=== PATIENT | male | born 1975 | race Native Hawaiian/Other Pacific Islander ===

== ENCOUNTER → 2019-11-16 | Outpatient (CLI) | payer BC, OTHER | END | disposition home or self-care (01) | LOC: LABWHC1 14:57 | PROVIDERS: ATTEND Internal Medicine | DX: Z20.828 Contact with and (suspected) exposure to other viral communicable diseases (principal) | CPT/HCPCS: U0003; C9803 ==

== ENCOUNTER 2019-11-28 11:07 | Inpatient (IN) | payer BC ==
[2019-11-28] MEDS ORDERED: SODIUM CHLORIDE 0.9% 2,000 ML IV STA (11:36)
[2019-11-28] MEDS ORDERED: ONDANSETRON 4 MG/2 ML VIAL IVP STA (11:36)
[2019-11-28 12:04] LABS: Basophils # (A) 0.1 k/uL (0-0.2); Basophils % (A) 1 %; Eosinophils # (A) 0.1 k/uL (0-0.7); Eosinophils % (A) 1 %; HCT 46.1 % (39.0-53.0); HGB 15.3 gm/dL (13.0-17.5); Lymphocytes # (A) 1.1 k/uL (1.0-4.8); Lymphocytes % (A) 10 %; MCH 28.9 pg (25.0-35.0); MCHC 33.3 g/dL (31.0-37.0); Mean Platelet Volume 7.8; Monocytes # (A) 0.5 k/uL (0-1.0); Monocytes % (A) 4 %; Neutrophils # (A) 9.2 k/uL (1.3-7.7); Neutrophils % (A) 83 %; Platelet Count 280 k/uL (150-450); RBC 5.29 m/uL (4.30-5.90); RDW 12.4 % (11.5-15.5); WBC 11.2 k/uL (3.8-10.6)
[2019-11-28 12:17] LABS: ALT 52 U/L (4-49); AST 46 U/L (17-59); African American GFR (CKD) >90 (>60 ml/min/1.73 sqM); Albumin 3.9 g/dL (3.5-5.0); Alkaline Phosphatase 181 U/L (38-126); Amylase 103 U/L (30-110); Anion Gap 12 mmol/L; Blood Urea Nitrogen 14 mg/dL (9-20); Calcium 8.8 mg/dL (8.4-10.2); Carbon Dioxide 24 mmol/L (22-30); Chloride 97 mmol/L (98-107); Glucose 126 mg/dL (74-99); Non-African American GFR(CKD) >90 (>60 ml/min/1.73 sqM); Potassium 3.9 mmol/L (3.5-5.1); Sodium 133 mmol/L (137-145); Total Bilirubin 1.6 mg/dL (0.2-1.3)
[2019-11-28 12:26] LABS: Appearance,Urine Clear (Clear); Bilirubin,Urine 1+ (Negative); Blood,Urine Small (Negative); Color,Urine Dark Yellow; Glucose,Urine (UA) Negative (Negative); Ketones,Urine 4+ (Negative); Leukocyte Esterase,Urine Negative (Negative); Mucus,Urine Many /hpf; Nitrite,Urine Negative (Negative); Protein,Urine 2+ (Negative); RBC,Urine 2 /hpf (0-5); Specific Gravity,Urine 1.027 (1.001-1.035); Squamous Epithelial Cell,Urine <1 /hpf (0-4); Urobilinogen,Urine >12.0 mg/dL (<2.0); WBC,Urine 6 /hpf (0-5)
--- NOTE | 2019-11-28 12:41 | CT ---
EXAMINATION TYPE: CT abdomen pelvis w con DATE OF EXAM: 11/28/2019 COMPARISON: None HISTORY: recent diagnosis of UTI, increasing low abd pain today CT DLP: 1332.9 mGycm Automated exposure control for dose reduction was used. TECHNIQUE: Helical acquisition of images from the lung bases through the pelvis have been completed. CONTRAST: Performed without Oral Contrast and with IV Contrast, patient injected with 100 mL of Isovue 300. FINDINGS: Suspect a small hiatal hernia. There are coronary artery calcification suspected. LUNG BASES: No significant abnormality is appreciated. AORTA: No significant abnormality is appreciated. LIVER/GB: No significant abnormality is appreciated. PANCREAS: No significant abnormality is seen. SPLEEN: No significant abnormality is seen. ADRENALS: No significant abnormality is seen. KIDNEYS: No significant abnormality is seen. REPRODUCTIVE ORGANS: Prostate is enlarged BOWEL: There is abnormal thickening in the sigmoid colon region. Pericolonic increased attenuation p resent in the surrounding fat.. FREE AIR: Pneumoperitoneum appears somewhat localized to the colonic abnormality within the mesenter y but is also noted within an umbilical hernia and within the upper abdomen. ASCITES: Small amount of free fluid in the pelvis and mesenteric fat. There is motion on the exam. PELVIC ADENOPATHY: None visualized. RETROPERITONEAL ADENOPATHY: No Retroperitoneal Adenopathy visible. URINARY BLADDER: No significant abnormality is seen. OSSEOUS STRUCTURES: Degenerative disc changes are present within the visualized spine IMPRESSION: FINDINGS LIKELY REPRESENT DIVERTICULITIS WITH PERFORATION, PNEUMOPERITONEUM, REPORT RELAYED TO NICO TELEPHONICALLY AT THE TIME OF INTERPRETATION AT EXAM.
[2019-11-28] MEDS ORDERED: PIPERACILLIN-TAZOBACTAM 3.375 GM in SODIUM CHLORIDE 0.9% 100 ML IVPB STA (12:42)
[2019-11-28] MEDS ORDERED: ACETAMINOPHEN IV (For NPO) 1,000 MG in EMPTY BAG 1 BAG IVPB STA (12:44)
--- NOTE | 2019-11-28 12:44 | ED ---
Abdominal Pain HPI - General Source: patient, RN notes reviewed Mode of arrival: ambulatory Limitations: no limitations <Alex Potts - Last Filed: 11/28/19 12:52> <Kel Magdaleno - Last Filed: 11/28/19 13:21> - General Chief Complaint: Abdominal Pain Stated Complaint: abd pain Time Seen by Provider: 11/28/19 11:25 - History of Present Illness Initial Comments: 44-year-old male presents emergency Department chief complaint lower abdominal pain. Patient states he had pain that started approximate 4 days ago. Patient was seen at [facility] and was started on Bactrim for recheck infection. Patient states he took 3 days antibiotic states symptoms seemed to improve but greatly worsened last 24 hours. Patient states he has severe lower abdominal pain. Patient does admit to nausea vomiting and slight diarrhea. Denies any melena hematochezia. Patient denies any flank pain. Patient states she does have a fever and chills. denies any chest pain or shortness of breath. (Alex Potts) - Related Data Home Medications Medication Instructions Recorded Confirmed Famotidine [Pepcid AC] 10 mg PO BID 11/28/19 11/28/19 Sulfamethoxazole/Trimethoprim 1 tab PO BID 11/28/19 11/28/19 [Sulfamethoxazole-Tmp Ds Tablet] Allergies Allergy/AdvReac Type Severity Reaction Status Date / Time No Known Allergies Allergy Verified 11/28/19 12:32 Review of Systems ROS Other: All systems not noted in ROS Statement are negative. <Alex Potts - Last Filed: 11/28/19 12:52> ROS Other: All systems not noted in ROS Statement are negative. <Kel Magdaleno - Last Filed: 11/28/19 13:21> ROS Statement: Those systems with pertinent positive or pertinent negative responses have been documented in the HPI. Past Medical History Additional Past Medical History / Comment(s): UTI History of Any Multi-Drug Resistant Organisms: None Reported Past Surgical History: No Surgical Hx Reported Past Psychological History: Anxiety Smoking Status: Light tobacco smoker Past Alcohol Use History: Daily Past Drug Use History: None Reported <Alex Potts - Last Filed: 11/28/19 12:52> General Exam Limitations: no limitations General appearance: alert, in no apparent distress Head exam: Present: atraumatic, normocephalic, normal inspection Eye exam: Present: normal appearance, PERRL, EOMI. Absent: scleral icterus, conjunctival injection, periorbital swelling Respiratory exam: Present: normal lung sounds bilaterally. Absent: respiratory distress, wheezes, rales, rhonchi, stridor Cardiovascular Exam: Present: normal rhythm, tachycardia, normal heart sounds. Absent: systolic murmur, diastolic murmur, rubs, gallop, clicks GI/Abdominal exam: Present: soft, distended, tenderness, rigid, normal bowel sounds. Absent: guarding, rebound Neurological exam: Present: alert, oriented X3 Skin exam: Present: warm, dry, intact, normal color. Absent: rash <Alex Potts - Last Filed: 11/28/19 12:52> Course <Kel Magdaleno - Last Filed: 11/28/19 13:21> Vital Signs 11/28/19 11/28/19 11:16 12:49 Temperature 99.2 F 103.2 F H Pulse Rate 128 H 138 H Respiratory 20 18 Rate Blood Pressure 163/93 137/85 O2 Sat by Pulse 99 98 Oximetry - Reevaluation(s) Reevaluation #1: 11/28/19 13:20 PA supervision: I pursued a [id number] evaluation the patient he did present with complaints of abdominal pain. The patient will be admitted I did discuss case Dr. Yates. (Kel Magdaleno) Medical Decision Making - Lab Data Result diagrams: 11/28/19 11:48 11/28/19 11:48 <Alex Potts - Last Filed: 11/28/19 12:52> - Lab Data Result diagrams: 11/28/19 11:48 11/28/19 11:48 <Kel Magdaleno - Last Filed: 11/28/19 13:21> - Medical Decision Making 43-year-old male presented for abdominal pain. CT shows evidence of diverticulitis with perforation. Patient found to have mild cytosis, fever 103 and tachycardia related to fever and dehydration. Patient given 2 L bolus and maintenance fluid started 130mls/hr. patient was started on IV antibiotics, blood cultures were taken. Case discussed with Dr. Yates. Patient will be admitted for further management. (Alex Potts) - Lab Data Lab Results 07/28/20 07/28/20 07/28/20 Range/Units 11:48 11:48 11:48 WBC 11.2 H (3.8-10.6) k/uL RBC 5.29 (4.30-5.90) m/uL Hgb 15.3 (13.0-17.5) gm/dL Hct 46.1 (39.0-53.0) % MCV 87.0 (80.0-100.0) fL MCH 28.9 (25.0-35.0) pg MCHC 33.3 (31.0-37.0) g/dL RDW 12.4 (11.5-15.5) % Plt Count 280 (150-450) k/uL Neutrophils % 83 % Lymphocytes % 10 % Monocytes % 4 % Eosinophils % 1 % Basophils % 1 % Neutrophils # 9.2 H (1.3-7.7) k/uL Lymphocytes # 1.1 (1.0-4.8) k/uL Monocytes # 0.5 (0-1.0) k/uL Eosinophils # 0.1 (0-0.7) k/uL Basophils # 0.1 (0-0.2) k/uL Sodium 133 L (137-145) mmol/L Potassium 3.9 (3.5-5.1) mmol/L Chloride 97 L (98-107) mmol/L Carbon Dioxide 24 (22-30) mmol/L Anion Gap 12 mmol/L BUN 14 (9-20) mg/dL Creatinine 0.82 (0.66-1.25) mg/dL Est GFR (CKD-EPI)AfAm >90 (>60 ml/min/1.73 sqM) Est GFR (CKD-EPI)NonAf >90 (>60 ml/min/1.73 sqM) Glucose 126 H (74-99) mg/dL Plasma Lactic Acid Jose Ramon (0.7-2.0) mmol/L Calcium 8.8 (8.4-10.2) mg/dL Total Bilirubin 1.6 H (0.2-1.3) mg/dL AST 46 (17-59) U/L ALT 52 H (4-49) U/L Alkaline Phosphatase 181 H (38-126) U/L Total Protein 7.0 (6.3-8.2) g/dL Albumin 3.9 (3.5-5.0) g/dL Amylase 103 (30-110) U/L Lipase 261 (23-300) U/L Urine Color Dark Yellow Urine Appearance Clear (Clear) Urine pH 6.0 (5.0-8.0) Ur Specific Hardy 1.027 (1.001-1.035) Urine Protein 2+ H (Negative) Urine Glucose (UA) Negative (Negative) Urine Ketones 4+ H (Negative) Urine Blood Small H (Negative) Urine Nitrite Negative (Negative) Urine Bilirubin 1+ H (Negative) Urine Urobilinogen >12.0 (<2.0) mg/dL Ur Leukocyte Esterase Negative (Negative) Urine RBC 2 (0-5) /hpf Urine WBC 6 H (0-5) /hpf Ur Squamous Epith Cells <1 (0-4) /hpf Urine Mucus Many H (None) /hpf 11/28/19 Range/Units 11:48 WBC (3.8-10.6) k/uL RBC (4.30-5.90) m/uL Hgb (13.0-17.5) gm/dL Hct (39.0-53.0) % MCV (80.0-100.0) fL MCH (25.0-35.0) pg MCHC (31.0-37.0) g/dL RDW (11.5-15.5) % Plt Count (150-450) k/uL Neutrophils % % Lymphocytes % % Monocytes % % Eosinophils % % Basophils % % Neutrophils # (1.3-7.7) k/uL Lymphocytes # (1.0-4.8) k/uL Monocytes # (0-1.0) k/uL Eosinophils # (0-0.7) k/uL Basophils # (0-0.2) k/uL Sodium (137-145) mmol/L Potassium (3.5-5.1) mmol/L Chloride (98-107) mmol/L Carbon Dioxide (22-30) mmol/L Anion Gap mmol/L BUN (9-20) mg/dL Creatinine (0.66-1.25) mg/dL Est GFR (CKD-EPI)AfAm (>60 ml/min/1.73 sqM) Est GFR (CKD-EPI)NonAf (>60 ml/min/1.73 sqM) Glucose (74-99) mg/dL Plasma Lactic Acid Jose Ramon 1.3 (0.7-2.0) mmol/L Calcium (8.4-10.2) mg/dL Total Bilirubin (0.2-1.3) mg/dL AST (17-59) U/L ALT (4-49) U/L Alkaline Phosphatase (38-126) U/L Total Protein (6.3-8.2) g/dL Albumin (3.5-5.0) g/dL Amylase (30-110) U/L Lipase (23-300) U/L Urine Color Urine Appearance (Clear) Urine pH (5.0-8.0) Ur Specific Hardy (1.001-1.035) Urine Protein (Negative) Urine Glucose (UA) (Negative) Urine Ketones (Negative) Urine Blood (Negative) Urine Nitrite (Negative) Urine Bilirubin (Negative) Urine Urobilinogen (<2.0) mg/dL Ur Leukocyte Esterase (Negative) Urine RBC (0-5) /hpf Urine WBC (0-5) /hpf Ur Squamous Epith Cells (0-4) /hpf Urine Mucus (None) /hpf Critical Care Time Critical Care Time: Yes Total Critical Care Time: 35 <Alex Potts - Last Filed: 11/28/19 12:52> Disposition <Alex Potts - Last Filed: 11/28/19 12:52> <Kel Magdaleno - Last Filed: 11/28/19 13:21> Clinical Impression: Diverticulitis of colon with perforation Disposition: ADMITTED IP TO THIS [facility] Condition: Serious
[2019-11-28] MEDS ORDERED: NALOXONE 0.4 MG/ML 1 ML VIAL IV PRN (12:53)
[2019-11-28] MEDS ORDERED: ONDANSETRON 4 MG/2 ML VIAL IVP PRN (12:53)
[2019-11-28] MEDS: HYDROmorphone 0.5 MG/0.5 ML SYRINGE IVP PRN ×3 (13:05→19:51)
[2019-11-28] MEDS: SODIUM CHLORIDE 0.9% 1,000 ML IV SCH ×2 (16:54→18:56)
--- NOTE | 2019-11-28 17:25 | P.GSHP ---
History of Present Illness H&P Date: 11/28/19 Chief Complaint: Diverticulitis This a 44-year-old male who has a 5 day history of abdominal pain. Patient underwent CAT scan which shows evidence of diverticulitis with microperforation. Patient states that he is had similar attacks in the past. Past Medical History Additional Past Medical History / Comment(s): UTI History of Any Multi-Drug Resistant Organisms: None Reported Past Surgical History: No Surgical Hx Reported Past Psychological History: Anxiety Smoking Status: Light tobacco smoker Past Alcohol Use History: Daily Past Drug Use History: None Reported Medications and Allergies Home Medications Medication Instructions Recorded Confirmed Type Famotidine [Pepcid AC] 10 mg PO BID 11/28/19 11/28/19 History Sulfamethoxazole/Trimethoprim 1 tab PO BID 11/28/19 11/28/19 History [Sulfamethoxazole-Tmp Ds Tablet] Allergies Allergy/AdvReac Type Severity Reaction Status Date / Time No Known Allergies Allergy Verified 11/28/19 12:32 Surgical - Exam Vital Signs Temp Pulse Resp BP Pulse Ox 99.2 F 128 H 20 163/93 99 11/28/19 11:16 11/28/19 11:16 11/28/19 11:16 11/28/19 11:16 11/28/19 11:16 - General well developed, well nourished, no distress - Eyes PERRL - ENT normal pinna - Neck no masses - Respiratory normal expansion - Cardiovascular Rhythm: regular - Abdomen Mild tenderness left side there is no rebound or guarding Abdomen: soft Results - Labs 11/28/19 11:48 11/28/19 11:48 Abnormal Lab Results - Last 24 Hours (Table) 11/28/19 11/28/19 11/28/19 Range/Units 11:48 11:48 11:48 WBC 11.2 H (3.8-10.6) k/uL Neutrophils # 9.2 H (1.3-7.7) k/uL Sodium 133 L (137-145) mmol/L Chloride 97 L (98-107) mmol/L Glucose 126 H (74-99) mg/dL Total Bilirubin 1.6 H (0.2-1.3) mg/dL ALT 52 H (4-49) U/L Alkaline Phosphatase 181 H (38-126) U/L Urine Protein 2+ H (Negative) Urine Ketones 4+ H (Negative) Urine Blood Small H (Negative) Urine Bilirubin 1+ H (Negative) Urine WBC 6 H (0-5) /hpf Urine Mucus Many H (None) /hpf Diabetes panel 11/28/19 Range/Units 11:48 Sodium 133 L (137-145) mmol/L Potassium 3.9 (3.5-5.1) mmol/L Chloride 97 L (98-107) mmol/L Carbon Dioxide 24 (22-30) mmol/L BUN 14 (9-20) mg/dL Creatinine 0.82 (0.66-1.25) mg/dL Glucose 126 H (74-99) mg/dL Calcium 8.8 (8.4-10.2) mg/dL AST 46 (17-59) U/L ALT 52 H (4-49) U/L Alkaline Phosphatase 181 H (38-126) U/L Total Protein 7.0 (6.3-8.2) g/dL Albumin 3.9 (3.5-5.0) g/dL Calcium panel 11/28/19 Range/Units 11:48 Calcium 8.8 (8.4-10.2) mg/dL Albumin 3.9 (3.5-5.0) g/dL Pituitary panel 11/28/19 Range/Units 11:48 Sodium 133 L (137-145) mmol/L Potassium 3.9 (3.5-5.1) mmol/L Chloride 97 L (98-107) mmol/L Carbon Dioxide 24 (22-30) mmol/L BUN 14 (9-20) mg/dL Creatinine 0.82 (0.66-1.25) mg/dL Glucose 126 H (74-99) mg/dL Calcium 8.8 (8.4-10.2) mg/dL Adrenal panel 11/28/19 Range/Units 11:48 Sodium 133 L (137-145) mmol/L Potassium 3.9 (3.5-5.1) mmol/L Chloride 97 L (98-107) mmol/L Carbon Dioxide 24 (22-30) mmol/L BUN 14 (9-20) mg/dL Creatinine 0.82 (0.66-1.25) mg/dL Glucose 126 H (74-99) mg/dL Calcium 8.8 (8.4-10.2) mg/dL Total Bilirubin 1.6 H (0.2-1.3) mg/dL AST 46 (17-59) U/L ALT 52 H (4-49) U/L Alkaline Phosphatase 181 H (38-126) U/L Total Protein 7.0 (6.3-8.2) g/dL Albumin 3.9 (3.5-5.0) g/dL - Imaging CT scan - abdomen: report reviewed (Evidence of diverticulitis of sigmoid colon with sigmoid colon thickening there is a small amount of free air.) Assessment and Plan Plan: Diverticulitis with microperforation. Patient will be managed conservatively this time. We'll continue IV antibiotics and bowel rest.
[2019-11-28] MEDS: ACETAMINOPHEN IV (For NPO) 1,000 MG in EMPTY BAG 1 BAG IVPB SCH (18:55)
[2019-11-28] MEDS: HYDROmorphone 1 MG/ML 1 ML SYRINGE IVP PRN (22:47)
[2019-11-28] MEDS: PIPERACILLIN-TAZOBACTAM 3.375 GM in SODIUM CHLORIDE 0.9% 100 ML IVPB SCH (22:49)
[2019-11-29] MEDS: ACETAMINOPHEN IV (For NPO) 1,000 MG in EMPTY BAG 1 BAG IVPB SCH ×3 (00:43→11:46)
[2019-11-29] MEDS: HYDROmorphone 1 MG/ML 1 ML SYRINGE IVP PRN ×4 (02:42→22:32)
[2019-11-29] MEDS: SODIUM CHLORIDE 0.9% 1,000 ML IV SCH ×3 (02:44→17:37)
[2019-11-29] MEDS: PIPERACILLIN-TAZOBACTAM 3.375 GM in SODIUM CHLORIDE 0.9% 100 ML IVPB SCH ×2 (08:17→16:29)
--- NOTE | 2019-11-29 11:15 | P.PN ---
Progress Note - Text Progress Note Date: 11/29/19 The patient states he feels better. He's had decreasing pain. On exam vital signs are stable. Abdomen soft. Patient will have his diet advanced to clear liquids. He'll continue IV antibiotic for his diverticulitis.
[2019-11-29] MEDS: ALPRAZolam 0.5 MG TAB PO PRN ×2 (14:26→21:11)
[2019-11-29] MEDS: HYDROmorphone 0.5 MG/0.5 ML SYRINGE IVP PRN (16:31)
[2019-11-29 16:47] LABS: Basophils # (A) 0.1 k/uL (0-0.2); Basophils % (A) 0 %; Eosinophils # (A) 0.1 k/uL (0-0.7); Eosinophils % (A) 1 %; HCT 39.9 % (39.0-53.0); Lymphocytes # (A) 1.2 k/uL (1.0-4.8); Lymphocytes % (A) 8 %; MCH 28.9 pg (25.0-35.0); MCHC 32.6 g/dL (31.0-37.0); MCV 88.7 fL (80.0-100.0); Mean Platelet Volume 7.5; Monocytes # (A) 0.7 k/uL (0-1.0); Monocytes % (A) 5 %; Neutrophils # (A) 13.4 k/uL (1.3-7.7); Neutrophils % (A) 85 %; Platelet Count 301 k/uL (150-450); RDW 12.6 % (11.5-15.5); WBC 15.8 k/uL (3.8-10.6)
[2019-11-29 16:52] LABS: ALT 31 U/L (4-49); AST 20 U/L (17-59); African American GFR (CKD) >90 (>60 ml/min/1.73 sqM); Alkaline Phosphatase 125 U/L (38-126); Anion Gap 8 mmol/L; Blood Urea Nitrogen 12 mg/dL (9-20); Calcium 8.5 mg/dL (8.4-10.2); Carbon Dioxide 26 mmol/L (22-30); Chloride 103 mmol/L (98-107); Glucose 119 mg/dL (74-99); Non-African American GFR(CKD) >90 (>60 ml/min/1.73 sqM); Potassium 4.4 mmol/L (3.5-5.1); Sodium 137 mmol/L (137-145); Total Bilirubin 0.9 mg/dL (0.2-1.3); Total Protein 5.7 g/dL (6.3-8.2)
[2019-11-29] MEDS: FAMOTIDINE 20 MG TAB PO SCH (20:49)
--- NOTE | 2019-11-29 22:56 | P.CONS ---
History of Present Illness - Reason for Consult Consult date: 11/29/19 Medical management - Chief Complaint Abdominal pain - History of Present Illness Patient is a 44-year-old male with a known history of anxiety came to ER with complaints of abdominal pain for the past 5 days. Mainly in the lower abdomen. Pain is associate with nausea and couple episodes of diarrhea. Denied any blood in the stool. No dysuria or hematuria. Patient was seen at [facility] and was started on Bactrim. Patient took 3 days of antibiotics and symptoms seemed to improve but greatly worsened last 24 hours. Patient presents to ER for evaluation. Patient does have fever and chills at home. No complaints of chest pain or shortness breath. No cough or sputum production. Denies any recent illness. Denies any unusual food intake. Patient does have issues with constipation on and off. CT of the abdomen pelvis showed findings likely represented represent diverticulitis with perforation, pneumoperitoneum. Laboratory data showed WBC 11.2, hemoglobin 15.3, platelets 280 Sodium 133, chloride 97, BUN 49 creatinine 0.82 Total bilirubin is 1.6 AST 46 and ALT 52, alk phos 181 Urinalysis showed 4+ ketones nitrite negative and leukocyte esterase negative T- max was 103.2 on admission. Patient was tachycardic on admission. Review of Systems Constitutional: Patient denies any fever or chills . No generalized weakness or weight loss. Abdomen: Patient does have nausea and vomiting and abdominal pain. Cardiovascular: Patient denies any chest pain or short of breath no palpitations. Respiratory: patient denied any cough is from production. No shortness of breath Neurologic: Patient denied any numbness or tingling headache. Musculoskeletal: Patient denies any complaints of joint swelling or deformity. Skin: Negative Psychiatric: Negative Endocrine: No heat or cold intolerance. No recent weight gain. Genitourinary: No dysuria or hematuria. All other 14 point ROS negative except the above Past Medical History Additional Past Medical History / Comment(s): UTI History of Any Multi-Drug Resistant Organisms: None Reported Past Surgical History: No Surgical Hx Reported Past Psychological History: Anxiety Smoking Status: Light tobacco smoker Past Alcohol Use History: Daily Past Drug Use History: None Reported Medications and Allergies Home Medications Medication Instructions Recorded Confirmed Type Famotidine [Pepcid AC] 10 mg PO BID 11/28/19 11/28/19 History Sulfamethoxazole/Trimethoprim 1 tab PO BID 11/28/19 11/28/19 History [Sulfamethoxazole-Tmp Ds Tablet] ALPRAZolam [Xanax] 0.5 mg PO BID PRN 11/29/19 11/29/19 History Allergies Allergy/AdvReac Type Severity Reaction Status Date / Time No Known Allergies Allergy Verified 11/28/19 12:32 Physical Exam Vitals: Vital Signs Temp Pulse Pulse Resp BP BP Pulse Ox 11/29/19 04:40 97.6 F 85 16 125/80 98 11/29/19 00:00 103 H 18 11/28/19 22:45 100.4 F H 11/28/19 19:22 101.2 F H 115 H 18 125/78 97 11/28/19 17:03 99.2 F 119 H 17 133/74 99 11/28/19 15:50 98.8 F 111 H 18 110/74 97 11/28/19 14:10 101.5 F H 119 H 18 109/76 96 11/28/19 12:49 103.2 F H 138 H 18 137/85 98 11/28/19 11:16 99.2 F 128 H 20 163/93 99 Intake and Output 11/28/19 11/29/19 11/29/19 22:59 06:59 14:59 Intake Total 720 1140 Output Total 500 Balance 220 1140 Intake: Intake, IV Titration 720 1140 Amount ACETAMINOPHEN IV (For NPO 200 ) 1,000 mg In Empty Bag 1 bag @ 400 mls/hr IVPB Q6H [facility]RE[facility] Rx#:[id number] Piperacillin-Tazobactam 3 100 .375 gm In Sodium Chloride 0.9% 100 ml @ 25 mls/hr IVPB Q8HR [facility] Rx# :[id number] Sodium Chloride 0.9% 1, 520 1040 000 ml @ 130 mls/hr IV . Q7H42M JEFFREY Rx#:[id number] Output: Urine 500 Other: # Voids 1 Weight 81.647 kg PHYSICAL EXAMINATION: Patient is lying in the bed comfortably, no acute distress, awake alert and oriented.. HEENT: Normocephalic. Neck is supple. Pupils reactive. Nostrils clear. Oral cavity is moist. Ears reveal no drainage. Neck reveals no JVD, carotid bruits, or thyromegaly. CHEST EXAMINATION: Trachea is central. Symmetrical expansion. Lung schmidt clear to auscultation and percussion. CARDIAC: Normal S1, S2 with no gallops. No murmurs ABDOMEN: Soft. Left upper quadrant tenderness. No guarding or rigidity. Bowel sounds present.. No abdominal bruits. Extremities: reveal no edema. No clubbing or cyanosis Neurologically awake, alert, oriented x3 with well-coordinated movements. No focal deficits noted Skin: No rash or skin lesions. Psychiatric: Coperative. Nonsuicidal Musculoskeletal: No joint swelling or deformity. Normal range of motion. Results CBC & Chem 7: 11/29/19 16:23 11/29/19 16:23 Labs: Abnormal Lab Results - Last 24 Hours (Table) 11/28/19 11/28/19 11/28/19 Range/Units 11:48 11:48 11:48 WBC 11.2 H (3.8-10.6) k/uL Neutrophils # 9.2 H (1.3-7.7) k/uL Sodium 133 L (137-145) mmol/L Chloride 97 L (98-107) mmol/L Glucose 126 H (74-99) mg/dL Total Bilirubin 1.6 H (0.2-1.3) mg/dL ALT 52 H (4-49) U/L Alkaline Phosphatase 181 H (38-126) U/L Urine Protein 2+ H (Negative) Urine Ketones 4+ H (Negative) Urine Blood Small H (Negative) Urine Bilirubin 1+ H (Negative) Urine WBC 6 H (0-5) /hpf Urine Mucus Many H (None) /hpf Assessment and Plan Assessment: Abdominal pain secondary to diverticulitis with perforation, pneumoperitoneum. Sepsis secondary to diverticulitis Mild transaminitis improved now Hypovolemic hyponatremia History of anxiety GI and DVT prophylaxis with Pepcid and heparin subcu Plan: Patient will be continued on IV hydration with normal saline, continue with antibiotic and follow-up Zosyn and follow-up blood culture reports. We will follow-up closely and further recommendations based on the clinical course. Discussed with the patient and his at bedside in detail. Thank you for your consult. Time with Patient: Greater than 30
--- NOTE | 2019-11-29 23:51 | P.CONS ---
History of Present Illness - Reason for Consult Consult date: 11/29/19 Perforated diverticulitis Requesting physician: Robert Yates - Chief Complaint Abdominal pain 4 days - History of Present Illness Patient is a 44-year-old male presenting to the ER with chief complaints of worsening abdominal pain that apparently initially started about 4 days ago patient pain has been mostly in the lower abdominal area is slightly the pain to be more of colicky and sharp that has gradually increased in intensity and almost 10 out of 10 by the time he presented to hospital patient was seen for the same symptoms at [facility] urgent care where apparently the patient was diagnosed with UTI and was started on Bactrim DS patient took about 3 doses w ithout any improvement with worsening of abdominal pain the patient did presented to [facility] on arrival to the ER the patient did have a fever of 103F patient did have a white count of 11.1 subsequently the white count is up to 15,000 today patient did have CT of abdominal pelvis with evidence of perforated sigmoid diverticulitis but no mention of any abscess patient was started on Zosyn admitted to the hospital infectious disease was consulted for further management of antibiotic therapy Review of Systems Positive point has been mentioned in the HPI rest of the systems are negative Past Medical History Additional Past Medical History / Comment(s): UTI History of Any Multi-Drug Resistant Organisms: None Reported Past Surgical History: No Surgical Hx Reported Past Psychological History: Anxiety Smoking Status: Light tobacco smoker Past Alcohol Use History: Daily Past Drug Use History: None Reported Medications and Allergies Home Medications Medication Instructions Recorded Confirmed Type Famotidine [Pepcid AC] 10 mg PO BID 11/28/19 11/28/19 History Sulfamethoxazole/Trimethoprim 1 tab PO BID 11/28/19 11/28/19 History [Sulfamethoxazole-Tmp Ds Tablet] ALPRAZolam [Xanax] 0.5 mg PO BID PRN 11/29/19 11/29/19 History Allergies Allergy/AdvReac Type Severity Reaction Status Date / Time No Known Allergies Allergy Verified 11/28/19 12:32 Physical Exam Vitals: Vital Signs Temp Pulse Pulse Resp BP BP Pulse Ox 11/29/19 11:20 99.1 F 107 H 18 128/77 97 11/29/19 04:40 97.6 F 85 16 125/80 98 11/29/19 00:00 103 H 18 11/28/19 22:45 100.4 F H 11/28/19 19:22 101.2 F H 115 H 18 125/78 97 11/28/19 17:03 99.2 F 119 H 17 133/74 99 11/28/19 15:50 98.8 F 111 H 18 110/74 97 11/28/19 14:10 101.5 F H 119 H 18 109/76 96 Intake and Output 11/28/19 11/29/19 11/29/19 22:59 06:59 14:59 Intake Total 720 1140 1650 Output Total 500 Balance 220 1140 1650 Intake: Intake, IV Titration 720 1140 1250 Amount ACETAMINOPHEN IV (For NPO 200 100 ) 1,000 mg In Empty Bag 1 bag @ 400 mls/hr IVPB Q6H [facility] Rx#:[id number] Piperacillin-Tazobactam 3 100 100 .375 gm In Sodium Chloride 0.9% 100 ml @ 25 mls/hr IVPB Q8HR [facility] Rx# :[id number] Sodium Chloride 0.9% 1, 520 1040 1050 000 ml @ 130 mls/hr IV . Q7H42M JEFFREY Rx#:[id number] Oral 400 Output: Urine 500 Other: # Voids 1 1 Weight 81.647 kg GENERAL DESCRIPTION: Middle-aged male lying in bed, no distress. No tachypnea or accessory muscle of respiration use. HEENT: Shows Pallor , no scleral icterus. Oral mucous membrane is dry. No pharyngeal erythema or thrush NECK: Trachea central, no thyromegaly. LUNGS: Unlabored breathing. Clear to auscultation anteriorly. No wheeze or crackle. HEART: S1, S2, regular rate and rhythm. No loud murmur ABDOMEN: Soft, mild lower abdominal tenderness , no guarding or rigidity, no organomegaly EXTREMITIES: No edema of feet. SKIN: No rash, no masses palpable. NEUROLOGICAL: The patient is awake, alert, oriented x3, mood and affect normal. Results CBC & Chem 7: 11/29/19 16:23 11/29/19 16:23 Assessment and Plan Assessment: 1- patient presented to hospital with sepsis in this patient did have a fever and elevated white count source is perforated sigmoid diverticulitis and will need to call for the enteric gram-negative both aerobes and anaerobes in this patient has failed outpatient oral Bactrim DS therapy (1) Sepsis Current Visit: Yes Status: Acute Code(s): A41.9 - SEPSIS, UNSPECIFIED ORGANISM SNOMED Code(s): 74217969 (2) Diverticulitis of colon with perforation Current Visit: Yes Status: Acute Code(s): K57.20 - DVTRCLI OF LG INT W PERFORATION AND ABSCESS W/O BLEEDING SNOMED Code(s): 49548738 Plan: 1- Zosyn 3.375 g every 8 hours 2- IV fluids and bowel rest at the bedside she did have multiple questions and those were answered in Layman terms Will follow on a clinical condition and cultures to further adjust medication if needed Thank you for this consultation will follow this patient along with you
[2019-11-30] MEDS: HEPARIN SODIUM,PORCINE 5,000 UNIT/ML 1 ML VIAL SQ SCH ×3 (00:07→15:44)
[2019-11-30] MEDS: PIPERACILLIN-TAZOBACTAM 3.375 GM in SODIUM CHLORIDE 0.9% 100 ML IVPB SCH ×3 (00:08→15:45)
[2019-11-30] MEDS: HYDROmorphone 0.5 MG/0.5 ML SYRINGE IVP PRN ×2 (01:38→14:40)
[2019-11-30] MEDS: SODIUM CHLORIDE 0.9% 1,000 ML IV SCH ×3 (01:44→22:42)
[2019-11-30] MEDS: HYDROmorphone 1 MG/ML 1 ML SYRINGE IVP PRN ×2 (04:29→08:15)
[2019-11-30 06:46] LABS: Basophils # (A) 0.1 k/uL (0-0.2); Basophils % (A) 1 %; Eosinophils # (A) 0.1 k/uL (0-0.7); Eosinophils % (A) 1 %; HCT 41.5 % (39.0-53.0); HGB 13.5 gm/dL (13.0-17.5); Lymphocytes # (A) 1.4 k/uL (1.0-4.8); Lymphocytes % (A) 8 %; MCH 28.9 pg (25.0-35.0); MCHC 32.6 g/dL (31.0-37.0); MCV 88.6 fL (80.0-100.0); Mean Platelet Volume 7.4; Monocytes # (A) 0.9 k/uL (0-1.0); Monocytes % (A) 5 %; Neutrophils # (A) 14.4 k/uL (1.3-7.7); Neutrophils % (A) 82 %; Platelet Count 305 k/uL (150-450); RBC 4.68 m/uL (4.30-5.90); RDW 12.8 % (11.5-15.5); WBC 17.5 k/uL (3.8-10.6)
[2019-11-30 06:56] LABS: ALT 24 U/L (4-49); AST 22 U/L (17-59); African American GFR (CKD) >90 (>60 ml/min/1.73 sqM); Albumin 2.8 g/dL (3.5-5.0); Alkaline Phosphatase 118 U/L (38-126); Anion Gap 3 mmol/L; Blood Urea Nitrogen 11 mg/dL (9-20); Calcium 7.9 mg/dL (8.4-10.2); Carbon Dioxide 25 mmol/L (22-30); Chloride 103 mmol/L (98-107); Glucose 106 mg/dL (74-99); Non-African American GFR(CKD) >90 (>60 ml/min/1.73 sqM); Potassium 4.2 mmol/L (3.5-5.1); Sodium 131 mmol/L (137-145); Total Bilirubin 0.7 mg/dL (0.2-1.3); Total Protein 5.5 g/dL (6.3-8.2)
[2019-11-30] MEDS: FAMOTIDINE 20 MG TAB PO SCH (07:50)
--- NOTE | 2019-11-30 08:39 | P.PN ---
Progress Note - Text Progress Note Date: 11/30/19 Patient's complaints of nausea. He's had an emesis. His white count is increased 17.5. On exam vital signs are stable. Abdomen soft there is tenderness left lower quadrant. Patient will undergo repeat CAT scan to evaluate his diverticular abscess.
[2019-11-30] MEDS: IOPAMIDOL CONTRAST (ORAL USE) VIAL PO PRN ×2 (09:17→10:16)
[2019-11-30] MEDS: HYDROcodone/APAP 5-325MG 1 EACH TAB PO PRN (11:09)
--- NOTE | 2019-11-30 11:11 | CT ---
EXAMINATION TYPE: CT abdomen pelvis w con DATE OF EXAM: 11/30/2019 COMPARISON: 11/28/2019 HISTORY: Increased pain and nausea CT DLP: 1068.4 mGycm Automated exposure control for dose reduction was used. CONTRAST: CT scan of the abdomen pelvis is performed with IV Contrast, patient injected with 100 mL of Isovue 3 00. FINDINGS- LUNG BASES-bilateral subsegmental consolidation compatible with atelectasis. LIVER/GB- No gross abnormality is appreciated. PANCREAS- No gross abnormality is seen. SPLEEN- No gross abnormality is seen. ADRENALS- No gross abnormality is seen. KIDNEYS/BLADDER- no hydronephrosis nephrolithiasis or renal mass. BOWEL-there remains pneumoperitoneum. Inflammatory changes in the pericolonic region with free air ad jacent are noted in could been the basis of bowel perforation. Poorly defined fluid air collection is seen posterior to the sigmoid colon measuring 2.8 cm as well as a larger air collection to the right of the sigmoid colon measuring 6.1 cm. Finding likely is related to developing multiple abscess. Mes enteric edema small amount of free fluid in the pelvis noted. There is dilated small bowel loops with thickened carey likely reactive secondary to the inflammatory changes. Small amount of ascites noted . Report called to the patient's nurse. LYMPH NODES- No greater than 1cm abdominal or pelvic lymph nodes areappreciated. OSSEOUS STRUCTURES-severe degenerative changes lower lumbar spine with multilevel facet arthropathy a nd hypertrophic spurring.. OTHER- aorta of normal caliber. There is evidence of free air and a small amount of ascites. IMPRESSION- 1. Diffuse edema in the mesentery as well as inflammatory changes surrounding the sigmoid colon with pneumoperitoneum compatible with bowel perforation. There now is a small amount of free fluid in the abdomen and pelvis and two poorly defined mixed air-fluid collections measuring 6.1 and 2.8 cm sugges tive of developing abscess cavities. 2. Dilated small bowel loops with thickened wall likely reactive secondary to an ileus due to the sev ere adjacent inflammatory changes within the pelvis.
[2019-11-30] MEDS ORDERED: fentaNYL (PF) 50 MCG/ML 2 ML AMP IV ONE (11:50)
--- NOTE | 2019-11-30 11:55 | P.PN ---
Progress Note - Text Progress Note Date: 11/30/19 The patient's CAT scan was reviewed. Patient has increased amount of free peritoneal air. There is also developing abscess and fluid collections. Given the fact that his leukocytosis has worsened. I believe the patient undergo exposure laparotomy with drainage of abscess and sigmoid resection for colonic perforation. I discussed patient that he'll require colostomy. Patient be scheduled for surgery later today.
[2019-11-30] MEDS ORDERED: ONDANSETRON 4 MG/2 ML VIAL ONE (15:00)
[2019-11-30] MEDS ORDERED: IV FLUID CONTINUATION 1,000 ML IV ONE (15:16)
[2019-11-30] MEDS ORDERED: ONDANSETRON 4 MG/2 ML VIAL IVP ONE (15:31)
[2019-11-30] MEDS ORDERED: DEXAMETHASONE SOD PHOSPHATE 10 MG/ML 1 ML VIAL IV ONE (15:31)
[2019-11-30] MEDS ORDERED: MIDAZOLAM 2 MG/2 ML VIAL IVP ONE (15:50)
--- NOTE | 2019-11-30 16:03 | P.PN ---
Subjective Progress Note Date: 11/30/19 Principal diagnosis: - Reason for Consult Consult date: 11/29/19 Medical management - Chief Complaint Abdominal pain - History of Present Illness Patient is a 44-year-old male with a known history of anxiety came to ER with complaints of abdominal pain for the past 5 days. Mainly in the lower abdomen. Pain is associated with nausea and couple episodes of diarrhea. Denied any blood in the stool. No dysuria or hematuria. Patient was seen at [facility] and was started on Bactrim. Patient took 3 days of antibiotics and symptoms seemed to improve but greatly worsened last 24 hours. Patient presents to ER for evaluation. Patient does have fever and chills at home. No complaints of chest pain or shortness breath. No cough or sputum production. Denies any recent illness. Denies any unusual food intake. Patient does have issues with constipation on and off. CT of the abdomen pelvis showed findings likely represent diverticulitis with perforation, pneumoperitoneum. Laboratory data showed WBC 11.2, hemoglobin 15.3, platelets 280 Sodium 133, chloride 97, BUN 49 creatinine 0.82 Total bilirubin is 1.6 AST 46 and ALT 52, alk phos 181 Urinalysis showed 4+ ketones nitrite negative and leukocyte esterase negative T- max was 103.2 on admission. Patient was tachycardic on admission. 11/30/2019 Patient is seen and evaluated and follow-up and continues to have some abdominal discomfort in the lower left and right quadrants and is had multiple episodes of diarrhea throughout the night. He should white blood count today slightly elevated from previous at 17.5, current sodium is 131. Patient underwent a CAT scan of the abdomen showing diffuse edema in the mesentery as well as inflammatory changes surrounding the sigmoid colon with pneumoperitoneum compatible with bowel perforation along with a small amount of free fluid and air noted suggestive of a developing abscess along with dilated small bowel loops and severe inflammatory changes within the pelvis. Patient will be scheduled for surgery today for laparotomy, incision and drainage of the abscess, and colostomy. Family at the bedside and made aware of these findings and will be discussed with surgery about the procedure. Patient denies any chest pain, shortness of breath, or palpitations. Patient was on clear liquids this morning and continues to have hiccups quite often today. Patient denies any nausea or vomiting. Patient is afebrile. Patient is currently maintained on IV antibiotics in the form of Zosyn and will continue at this time. Infectious disease has been consulted. Objective - Vital Signs Vital signs: Vital Signs Temp 98.2 F 11/30/19 09:31 Pulse 117 H 11/30/19 09:31 Resp 18 11/30/19 09:31 BP 145/88 11/30/19 09:31 Pulse Ox 97 11/30/19 09:31 Intake & Output 11/29/19 11/30/19 11/30/19 18:59 06:59 18:59 Intake Total 1650 1620 Output Total 500 200 100 Balance 1150 1420 -100 Intake: Intake, IV Titration 1250 1620 Amount ACETAMINOPHEN IV (For NPO 100 ) 1,000 mg In Empty Bag 1 bag @ 400 mls/hr IVPB Q6H [facility] Rx#:[id number] Piperacillin-Tazobactam 3 100 100 .375 gm In Sodium Chloride 0.9% 100 ml @ 25 mls/hr IVPB Q8HR [facility] Rx# :[id number] Sodium Chloride 0.9% 1, 1050 1520 000 ml @ 130 mls/hr IV . Q7H42M [facility] Rx#:[id number] Oral 400 Output: Urine 500 200 100 Other: Voiding Method Toilet Toilet Urinal Urinal # Voids 1 1 - Exam Patient is lying in the bed comfortably, no acute distress, awake alert and oriented.. HEENT: Normocephalic. Neck is supple. Pupils reactive. Nostrils clear. Oral cavity is moist. Ears reveal no drainage. Neck reveals no JVD, carotid bruits, or thyromegaly. CHEST EXAMINATION: Trachea is central. Symmetrical expansion. Lung schmidt clear to auscultation and percussion. CARDIAC: Normal S1, S2 with no gallops. No murmurs ABDOMEN: Soft. Left and right lower quadrant tenderness. No guarding or rigidity. Bowel sounds present.. No abdominal bruits. Extremities: reveal no edema. No clubbing or cyanosis Neurologically awake, alert, oriented x3 with well-coordinated movements. No focal deficits noted Skin: No rash or skin lesions. Psychiatric: Cooperative. Non-suicidal Musculoskeletal: No joint swelling or deformity. Normal range of motion. - Labs CBC & Chem 7: 11/30/19 06:17 11/30/19 06:17 Labs: Abnormal Lab Results - Last 24 Hours (Table) 11/29/19 11/29/19 11/30/19 Range/Units 16:23 16:23 06:17 WBC 15.8 H 17.5 H (3.8-10.6) k/uL Neutrophils # 13.4 H 14.4 H (1.3-7.7) k/uL Sodium (137-145) mmol/L Creatinine (0.66-1.25) mg/dL Glucose 119 H (74-99) mg/dL Calcium (8.4-10.2) mg/dL Total Protein 5.7 L (6.3-8.2) g/dL Albumin 3.0 L (3.5-5.0) g/dL 11/30/19 Range/Units 06:17 WBC (3.8-10.6) k/uL Neutrophils # (1.3-7.7) k/uL Sodium 131 L (137-145) mmol/L Creatinine 0.59 L (0.66-1.25) mg/dL Glucose 106 H (74-99) mg/dL Calcium 7.9 L (8.4-10.2) mg/dL Total Protein 5.5 L (6.3-8.2) g/dL Albumin 2.8 L (3.5-5.0) g/dL Microbiology - Last 24 Hours (Table) 11/28/19 12:58 Blood Culture - Preliminary Blood No Growth after 24 hours Assessment and Plan Assessment: Abdominal pain secondary to diverticulitis with perforation, pneumoperitoneum. Sepsis secondary to diverticulitis Mild transaminitis improved now Hypovolemic hyponatremia History of anxiety GI and DVT prophylaxis with Pepcid and heparin subcu Plan: Patient will be continued on IV hydration with normal saline, continue with antibiotic and follow-up Zosyn and follow-up blood culture reports. Blood cultures remain negative although white count continues to elevate. Patient underwent CAT scan of the abdomen and patient is scheduled to undergo surgery with laparotomy, incision and drainage of the abscess of the abdomen, and colost marija with Dr. Yates today. Infectious disease is following. Patient is maintained on IV Zosyn and will continue at this time. We will follow-up closely and make further recommendations based on the clinical course. Discussed with the patient and his at bedside in detail. Will repeat a.m. labs. Further recommendations to follow. Thank you for your consult.
[2019-11-30] MEDS ORDERED: diphenhydrAMINE 50 MG/ML 1 ML VIAL IVP PRN (16:57)
[2019-11-30] MEDS ORDERED: NALOXONE 0.4 MG/ML 1 ML VIAL IV PRN (16:57)
[2019-11-30] MEDS ORDERED: LACTATED RINGERS 1,000 ML IV ONE (17:18)
[2019-11-30] MEDS ORDERED: HYDROmorphone (PF) 1 MG/ML ONE (17:22)
[2019-11-30] MEDS ORDERED: fentaNYL (PF) 50 MCG/ML 2 ML AMP ONE (17:22)
[2019-11-30] MEDS ORDERED: SUCCINYLCHOLINE CHLORIDE 100 MG/5 ML SYR IV ONE (17:22)
[2019-11-30] MEDS ORDERED: GLYCOPYRROLATE 0.2 MG/ML 2 ML VIAL ONE (17:22)
[2019-11-30] MEDS ORDERED: NEOSTIGMINE 1 MG/ML 10 ML VIAL ONE (17:22)
[2019-11-30] MEDS ORDERED: ROCURONIUM BROMIDE 10 MG/ML 5 ML VIAL IV ONE (17:22)
[2019-11-30] MEDS ORDERED: LIDOCAINE 1% INJ 10MG/ML (20 ML MDV) ONE (17:22)
[2019-11-30] MEDS ORDERED: MIDAZOLAM 2 MG/2 ML VIAL ONE (17:22)
[2019-11-30] MEDS ORDERED: PROPOFOL 10 MG/ML 20 ML VIAL IV ONE (17:22)
[2019-11-30] MEDS ORDERED: CEFAZOLIN IV ONE ×2 (17:45)
[2019-11-30] MEDS ORDERED: SODIUM CHLORIDE 0.9% IV ONE ×2 (17:45)
--- NOTE | 2019-11-30 17:51 | PN ---
PROGRESS NOTE DATE OF SERVICE: 11/30/2019 REASON FOR FOLLOW UP: Diverticulitis with perforation and abscess. INTERVAL HISTORY: The patient did a temperature of 99.8. The patient apparently did have an episode of vomiting this morning. Abdominal pain has been about the same; no worsening. No chest pain, shortness of breath or cough. PHYSICAL EXAMINATION: Blood pressure 122/65 with a pulse of 110, temperature 99.2. He is 99% on 2 L nasal cannula. General description is a middle-aged male lying in bed in no distress. RESPIRATORY SYSTEM: Unlabored breathing. Clear to auscultation anteriorly. HEART: S1, S2. Regular rate and rhythm. ABDOMEN: Soft. Mildly distended. No guarding or rigidity. LABS: Hemoglobin 13.5, white count 17.[address] repeat did show development of an abscess. DIAGNOSTIC IMPRESSION AND PLAN: Patient with acute sigmoid diverticulitis with perforation, now with worsening of the white count, vomiting, and CT showing developing abscess. The patient has been evaluated by Surgery and the patient is to be taken to the OR for laparotomy, hopefully drainage of the abscess and deep cultures. Continue with Navdeep. Monitor clinical course closely. MMODL / IJN: [id number] /
--- NOTE | 2019-11-30 18:56 | P.OP ---
Date of Procedure: 11/30/19 Preoperative Diagnosis: Perforated diverticulitis Postoperative Diagnosis: Perforated diverticulitis Procedure(s) Performed: Exploratory laparotomy Sigmoid colectomy with colostomy Washout of peritoneal cavity Anesthesia: BEVERLY Surgeon: Robert Yates Estimated Blood Loss (ml): 100 Pathology: other (Sigma colon, culture) Condition: stable Disposition: PACU Description of Procedure: The patient's placed on the operating table in the supine position. He received general anesthesia. His at was prepped and draped usual fashion. The abdomen was entered through a low midline incision. Upon entering the Cavity there was some purulent fluid. A culture was obtained. There appeared to be obvious perforation of the sigmoid colon. The white line of Toldt was divided in the left colon was mobilized. The sigmoid colon was then transected proximally to the area of inflammation using the GI stapler. The mesosigmoid colon was then taken with the Enseal device to the level rectum. The rectum was then transected with the contour stapler. Specimens of pathology. The abdomen was irrigated there is no bleeding seen. There were several small interloop abscesses in the small bowel and these were drained. At this point a suitable spot for the colostomy was chosen in the left upper quadrant a ZECHARIAH drains placed the pelvis and brought through separate stabs his right lower quadrant. We colostomy was brought through the abdominal wall. And then the fascia was closed with looped #1 PDS suture. Skin was closed jamal. Several Telfa myrna were placed in the incision. The colostomy then matured with 3-0 Vicryl suture. Sterile dressing applied. The colostomy appliance was applied Patient top she will well.
[2019-11-30] MEDS ORDERED: ONDANSETRON 4 MG/2 ML VIAL IVP PRN (18:58)
[2019-11-30] MEDS ORDERED: METOCLOPRAMIDE 5 MG/ML 2 ML VIAL IVP PRN (18:58)
[2019-11-30] MEDS ORDERED: HYDROmorphone 1 MG/ML 1 ML SYRINGE IVP PRN (18:58)
[2019-11-30] MEDS: MIDAZOLAM 2 MG/2 ML VIAL IVP ONE ×2 (19:24→19:30)
[2019-11-30] MEDS ORDERED: KETOROLAC 30 MG/ML 1 ML VIAL IVP ONE (19:39)
[2019-11-30] MEDS: D5-0.45% NACL WITH KCL 20MEQ/L 1,000 ML IV SCH (20:55)
[2019-11-30] MEDS: FAMOTIDINE 20 MG/2 ML VIAL IV SCH (21:22)
[2019-12-01] MEDS: PIPERACILLIN-TAZOBACTAM 3.375 GM in SODIUM CHLORIDE 0.9% 100 ML IVPB SCH ×4 (00:45→23:45)
[2019-12-01] MEDS: HEPARIN SODIUM,PORCINE 5,000 UNIT/ML 1 ML VIAL SQ SCH ×4 (00:45→23:46)
[2019-12-01] MEDS: D5-0.45% NACL WITH KCL 20MEQ/L 1,000 ML IV SCH ×4 (03:43→19:15)
[2019-12-01] MEDS: SODIUM CHLORIDE 0.9% 1,000 ML IV SCH ×4 (03:49→23:49)
[2019-12-01] MEDS: FAMOTIDINE 20 MG/2 ML VIAL IV SCH ×2 (07:56→20:07)
[2019-12-01 08:28] LABS: Basophils # (A) 0.2 k/uL (0-0.2); Basophils % (A) 1 %; Eosinophils # (A) 0.1 k/uL (0-0.7); Eosinophils % (A) 0 %; HGB 13.5 gm/dL (13.0-17.5); Lymphocytes # (A) 1.4 k/uL (1.0-4.8); Lymphocytes % (A) 8 %; MCH 28.1 pg (25.0-35.0); MCHC 31.4 g/dL (31.0-37.0); MCV 89.3 fL (80.0-100.0); Mean Platelet Volume 7.7; Monocytes % (A) 5 %; Neutrophils # (A) 15.5 k/uL (1.3-7.7); Neutrophils % (A) 83 %; Platelet Count 398 k/uL (150-450); RBC 4.82 m/uL (4.30-5.90); RDW 12.8 % (11.5-15.5); WBC 18.7 k/uL (3.8-10.6)
[2019-12-01 08:58] LABS: African American GFR (CKD) >90 (>60 ml/min/1.73 sqM); Anion Gap 7 mmol/L; Blood Urea Nitrogen 13 mg/dL (9-20); Calcium 7.9 mg/dL (8.4-10.2); Carbon Dioxide 24 mmol/L (22-30); Chloride 103 mmol/L (98-107); Glucose 155 mg/dL (74-99); Magnesium 2.2 mg/dL (1.6-2.3); Non-African American GFR(CKD) >90 (>60 ml/min/1.73 sqM); Potassium 4.5 mmol/L (3.5-5.1); Sodium 134 mmol/L (137-145)
--- NOTE | 2019-12-01 09:12 | P.PN ---
Progress Note - Text Progress Note Date: 12/01/19 Postoperative day #1 status post sigmoid resection explaretory laparotomy/epidural catheter placed for postoperative analgesia, patient doing well epidural site okay, patient currently on combination of epidural infusion solution of Ropivacaine 0.0625% and Dilaudid 20 g per mL the infusion rate at 8 ml per hour , patient had no motor deficit epidural site okay , vital signs stable ,VAS 2/10 , Assessment and plan= post operative day #1 patient doing well ,pain well controlled , there is no anesthesia related complications
[2019-12-01 10:52] VITALS: BMI 30.9
--- NOTE | 2019-12-01 14:32 | P.PN ---
<DejesusLilia Yaneli - Last Filed: 12/01/19 14:31> Subjective Progress Note Date: 12/01/19 CHIEF COMPLAINT: Abdominal pain HISTORY OF PRESENT ILLNESS: 44-year-old male who is status post exploratory laparotomy, sigmoid colectomy with colostomy, and washout of peritoneal cavity. Postoperative day #1. Patient examined at the bedside with Dr. Krishnamurthy (covering for Dr. Yates). Blood pressure stable. Temperature this morning 98.6. Patient tachycardic with a heart rate in the 110s. WBC 18.7. PHYSICAL EXAM: VITAL SIGNS: Reviewed GENERAL: Well-developed in no acute distress. HEENT: No sclera icterus. Extraocular movements grossly intact. Moist buccal mucosa. Head is atraumatic, normocephalic. Hears conversational speech. No nasal drainage. NECK: Supple without lymphadenopathy. CHEST: Non-labored respirations and equal bilateral excursions. CARDIOVASCULAR: Regular rate with regular rhythm. Palpable 2+ radial pulses. ABDOMEN: Soft. Nondistended. Ostomy intact without stool output. ZECHARIAH drain on SS drainage. MUSCULOSKELETAL: No clubbing or cyanosis. NEUROLOGIC: No focal or lateralizing signs. Cranial nerves II through XII grossly intact. PSYCH: Appropriate affect. Alert and oriented to person, place and time. SKIN: Well perfused. Good skin turgor. ASSESSMENT: 1. Perforated diverticulitis, status post exploratory laparotomy, sigmoid colectomy with colostomy, and washout of peritoneal cavity PLAN: -Pain control. Continue epidural. -Continue robles while epidural is in place -Continue antibiotics. Monitor WBC -Incentive spirometer -Await bowel function. Begin ice chips and popsicles only Nurse practitioner note has been reviewed by physician. Signing provider agrees with the documented findings, assessment, and plan of care. Objective - Vital Signs Vital signs: Vital Signs Temp 99.6 F 12/01/19 08:03 Pulse 116 H 12/01/19 08:03 Resp 20 12/01/19 08:03 BP 149/88 12/01/19 08:03 Pulse Ox 96 12/01/19 08:03 Intake & Output 11/30/19 12/01/19 12/01/19 18:59 06:59 18:59 Intake Total 2240 1425 Output Total 400 735 50 Balance 1840 690 -50 Weight 81.647 kg Intake: IV 1100 200 Intake, IV Titration 1140 1225 Amount D5-0.45% NaCl with KCl 1125 20Meq/l 1,000 ml @ 125 mls/hr IV .Q8H [facility] Rx#: [id number] Piperacillin-Tazobactam 3 100 100 .375 gm In Sodium Chloride 0.9% 100 ml @ 25 mls/hr IVPB Q8HR [facility] Rx# :[id number] Sodium Chloride 0.9% 1, 1040 000 ml @ 130 mls/hr IV . Q7H42M [facility] Rx#:[id number] Output: Drainage 385 50 Right Lower Abdomen 385 50 Urine 300 350 Uretheral (Robles) 350 Estimated Blood Loss 100 Other: Voiding Method Toilet Indwelling Catheter Indwelling Catheter Urinal - Labs CBC & Chem 7: 12/01/19 07:39 12/01/19 07:39 Labs: Abnormal Lab Results - Last 24 Hours (Table) 12/01/19 12/01/19 Range/Units 07:39 07:39 WBC 18.7 H (3.8-10.6) k/uL Neutrophils # 15.5 H (1.3-7.7) k/uL Sodium 134 L (137-145) mmol/L Creatinine 0.62 L (0.66-1.25) mg/dL Glucose 155 H (74-99) mg/dL Calcium 7.9 L (8.4-10.2) mg/dL Microbiology - Last 24 Hours (Table) 11/30/19 18:50 Gram Stain - Preliminary Other - Other Wound Culture - Preliminary 11/30/19 18:50 Anaerobic Culture - Preliminary Other - Other 11/28/19 12:58 Blood Culture - Preliminary Blood No Growth after 48 hours <Alison Krishnamurthy N - Last Filed: 12/03/19 22:45> Subjective Patient seen and evaluated with above. He has multiple questions regarding his surgery and diverticulitis. Patient is concerned for cancer. Otherwise, continue epidural and Robles catheter. Objective - Vital Signs Vital signs: Vital Signs Temp 99.2 F 12/03/19 21:21 Pulse 101 H 12/03/19 21:21 Resp 18 12/03/19 21:21 BP 136/89 12/03/19 21:21 Pulse Ox 98 12/03/19 21:21 Intake & Output 12/03/19 12/03/19 12/04/19 06:59 18:59 06:59 Intake Total 3796.543 1204 Output Total 2860 1600 Balance -1314.933 -340 Weight 81.647 kg Intake: Intake, IV Titration 1545.067 900 Amount D5-0.45% NaCl with KCl 1200 800 20Meq/l 1,000 ml @ 125 mls/hr IV .Q8H [facility] Rx#: [id number] Piperacillin-Tazobactam 3 100 100 .375 gm In Sodium Chloride 0.9% 100 ml @ 25 mls/hr IVPB Q8HR [facility] Rx# :[id number] Ropivacaine 250 mg 245.067 Hydromorphone (Pf) 5 mg In Sodium Chloride 0.9% 200 ml @ Per Protocol EPIDURAL .Q0M [facility] Rx#: [id number] Oral 0 360 Output: Drainage 60 Right Lower Abdomen 60 Urine 2800 1600 Other: Voiding Method Indwelling Catheter Toilet Urinal # Voids 1 - Labs CBC & Chem 7: 12/03/19 07:21 12/02/19 07:00 Labs: Abnormal Lab Results - Last 24 Hours (Table) 12/03/19 Range/Units 07:21 WBC 12.3 H (3.8-10.6) k/uL Hgb 12.8 L (13.0-17.5) gm/dL Plt Count 465 H (150-450) k/uL Neutrophils # 9.8 H (1.3-7.7) k/uL Microbiology - Last 24 Hours (Table) 11/30/19 18:50 Anaerobic Culture - Final Other - Other Anaerobic Gram Positive Cocci Anaerobic Gm Negative Bacilli 11/30/19 18:50 Gram Stain - Final Other - Other Wound Culture - Final Pseudomonas aeruginosa 11/28/19 12:58 Blood Culture - Preliminary Blood No Growth after 120 hours 12/01/19 14:00 Urine Culture - Final Urine,Clean Catch
[2019-12-01 14:39] LABS: Amorphous Sediment,Urine Rare /hpf; Appearance,Urine Cloudy (Clear); Bacteria,Urine Rare /hpf; Bilirubin,Urine Negative (Negative); Blood,Urine Large (Negative); Budding Yeast,Urine Rare /hpf; Color,Urine Yellow; Glucose,Urine (UA) 3+ (Negative); Ketones,Urine 1+ (Negative); Leukocyte Esterase,Urine Negative (Negative); Mucus,Urine Moderate /hpf; Nitrite,Urine Negative (Negative); Protein,Urine 1+ (Negative); RBC,Urine >182 /hpf (0-5); Specific Gravity,Urine 1.027 (1.001-1.035); Urobilinogen,Urine <2.0 mg/dL (<2.0); WBC,Urine 11 /hpf (0-5)
[2019-12-01] MEDS: BENZOCAINE/MENTHOL LOZENG 1 EACH LOZENGE MUCOUS MEM PRN (14:45)
--- NOTE | 2019-12-01 15:37 | P.PN ---
Subjective Progress Note Date: 12/01/19 Principal diagnosis: - Reason for Consult Consult date: 11/29/19 Medical management - Chief Complaint Abdominal pain - History of Present Illness Patient is a 44-year-old male with a known history of anxiety came to ER with complaints of abdominal pain for the past 5 days. Mainly in the lower abdomen. Pain is associated with nausea and couple episodes of diarrhea. Denied any blood in the stool. No dysuria or hematuria. Patient was seen at [facility] and was started on Bactrim. Patient took 3 days of antibiotics and symptoms seemed to improve but greatly worsened last 24 hours. Patient presents to ER for evaluation. Patient does have fever and chills at home. No complaints of chest pain or shortness breath. No cough or sputum production. Denies any recent illness. Denies any unusual food intake. Patient does have issues with constipation on and off. CT of the abdomen pelvis showed findings likely represent diverticulitis with perforation, pneumoperitoneum. Laboratory data showed WBC 11.2, hemoglobin 15.3, platelets 280 Sodium 133, chloride 97, BUN 49 creatinine 0.82 Total bilirubin is 1.6 AST 46 and ALT 52, alk phos 181 Urinalysis showed 4+ ketones nitrite negative and leukocyte esterase negative T- max was 103.2 on admission. Patient was tachycardic on admission. 11/30/2019 Patient is seen and evaluated and follow-up and continues to have some abdominal discomfort in the lower left and right quadrants and is had multiple episodes of diarrhea throughout the night. He should white blood count today slightly elevated from previous at 17.5, current sodium is 131. Patient underwent a CAT scan of the abdomen showing diffuse edema in the mesentery as well as inflammatory changes surrounding the sigmoid colon with pneumoperitoneum compatible with bowel perforation along with a small amount of free fluid and air noted suggestive of a developing abscess along with dilated small bowel loops and severe inflammatory changes within the pelvis. Patient will be scheduled for surgery today for laparotomy, incision and drainage of the abscess, and colostomy. Family at the bedside and made aware of these findings and will be discussed with surgery about the procedure. Patient denies any chest pain, shortness of breath, or palpitations. Patient was on clear liquids this morning and continues to have hiccups quite often today. Patient denies any nausea or vomiting. Patient is afebrile. Patient is currently maintained on IV antibiotics in the form of Zosyn and will continue at this time. Infectious disease has been consulted. 12/01/2019 Patient is seen in follow-up status post exploratory laparotomy with colectomy colostomy placement and is being closely monitored. Following along closely with surgery. Patient continues to have an epidural pain pump along with an indwelling Carrasco catheter. Patient is having some burning with urination along with leaking around the Carrasco catheter. Carrasco catheter was replaced and a urinalysis was obtained with reflex to culture. Will initiate IV ceftriaxone and patient is also maintained on Zosyn and will continue at this time. infectious disease is following. patient is sitting up in the chair and states he has had no gas or stool noted in the ostomy as of yet. Patient's pain is well managed with the epidural pump. Review of systems: constitutional: No reports of fatigue, fevers, or chills Cardiovascular: No reports of chest pain or palpitations Respiratory: No reports of shortness of breath or cough GI: No reports of nausea, vomiting, or diarrhea : reports some dysuria and leaking around the indwelling Carrasco catheter Active Medications Hydrocodone Bitart/Acetaminophen ([place] 5-325) 1 each PO Q6HR PRN PRN Reason: Pain Last Admin: 11/30/19 11:09 Dose: 1 each Documented by: Alprazolam (Xanax) 0.5 mg PO BID PRN PRN Reason: Anxiety Last Admin: 11/29/19 21:11 Dose: 0.5 mg Documented by: Benzocaine/Menthol (Cepacol Lozenge) 1 each MUCOUS MEM Q1HR PRN PRN Reason: Sore Throat Last Admin: 12/01/19 14:45 Dose: 1 each Documented by: Diphenhydramine HCl (Benadryl) 25 mg IVP Q6HR PRN PRN Reason: Itching Famotidine (Pepcid) 20 mg IV Q12HR [facility] Last Admin: 12/01/19 07:56 Dose: 20 mg Documented by: Heparin Sodium (Porcine) (Heparin) 5,000 unit SQ Q8HR [facility] Last Admin: 12/01/19 08:56 Dose: 5,000 unit Documented by: Hydromorphone HCl (Dilaudid) 0.5 mg IVP Q3HR PRN PRN Reason: Moderate Pain Last Admin: 11/30/19 14:40 Dose: 0.5 mg Documented by: Hydromorphone HCl (Dilaudid) 1 mg IVP Q3HR PRN PRN Reason: Moderate to Severe Pain Sodium Chloride (Saline 0.9%) 1,000 mls @ 130 mls/hr IV .Q7H42M [facility] Last Admin: 12/01/19 12:00 Dose: Not Given Documented by: Piperacillin Sod/Tazobactam (Sod 3.375 gm/ Sodium Chloride) 100 mls @ 25 mls/hr IVPB Q8HR [facility] Last Admin: 12/01/19 07:56 Dose: 25 mls/hr Documented by: Ropivacaine 250 mg/Hydromorphone HCl 5 mg/ Sodium Chloride 250 mls @ 0 mls/hr EPIDURAL .Q0M PRN; Protocol PRN Reason: Pain Control Potassium Chloride/Dextrose/Sod Cl (D5%-1/2ns-Kcl 20 Meq/L Iv Solution) 1,000 mls @ 125 mls/hr IV .Q8H [facility] Last Admin: 12/01/19 11:58 Dose: 125 mls/hr Documented by: Ceftriaxone Sodium 1 gm/ (Sodium Chloride) 50 mls @ 100 mls/hr IVPB Q24HR [facility] Metoclopramide HCl (Reglan) 10 mg IVP Q6HR PRN PRN Reason: Nausea and Vomiting Naloxone HCl (Narcan) 0.2 mg IV Q2M PRN PRN Reason: Opioid Reversal Ondansetron HCl (Zofran) 4 mg IVP Q6HR PRN PRN Reason: Nausea And Vomiting Objective - Vital Signs Vital signs: Vital Signs Temp 99.6 F 12/01/19 08:03 Pulse 116 H 12/01/19 08:03 Resp 20 12/01/19 08:03 BP 149/88 12/01/19 08:03 Pulse Ox 96 12/01/19 08:03 Intake & Output 11/30/19 12/01/19 12/01/19 18:59 06:59 18:59 Intake Total 2240 1425 Output Total 400 735 50 Balance 1840 690 -50 Weight 81.647 kg Intake: IV 1100 200 Intake, IV Titration 1140 1225 Amount D5-0.45% NaCl with KCl 1125 20Meq/l 1,000 ml @ 125 mls/hr IV .Q8H [facility] Rx#: [id number] Piperacillin-Tazobactam 3 100 100 .375 gm In Sodium Chloride 0.9% 100 ml @ 25 mls/hr IVPB Q8HR [facility] Rx# :[id number] Sodium Chloride 0.9% 1, 1040 000 ml @ 130 mls/hr IV . Q7H42M [facility] Rx#:[id number] Output: Drainage 385 50 Right Lower Abdomen 385 50 Urine 300 350 Uretheral (Carrasco) 350 Estimated Blood Loss 100 Other: Voiding Method Toilet Indwelling Catheter Indwelling Catheter Urinal - Exam Patient is Sitting up in the chair, awake alert and oriented x3, well-developed, well-nourished.. temp is 99.6, pulse is 116, respirations are 20, blood pressure is 149/88, oxygen saturation is 96% on room air HEENT: Normocephalic. Neck is supple. Pupils reactive. Nostrils clear. Oral cavity is moist. Ears reveal no drainage. Neck reveals no JVD, carotid bruits, or thyromegaly. CHEST EXAMINATION: Trachea is central. Symmetrical expansion. Lung schmidt clear to auscultation and percussion. CARDIAC: Normal S1, S2 with no gallops. No murmurs ABDOMEN: Soft. mildly tender by the surgical site. No guarding or rigidity. sluggish bowel sounds present.. No abdominal bruits. ZECHARIAH drain noted along with colostomy bag with some mild serous drainage noted no stool noted Extremities: reveal no edema. No clubbing or cyanosis bilateral SCDs noted Neurologically awake, alert, oriented x3 with well-coordinated movements. No focal deficits noted Skin: No rash or skin lesions. Psychiatric: Cooperative. Non-suicidal Musculoskeletal: No joint swelling or deformity. Normal range of motion. - Labs CBC & Chem 7: 12/01/19 07:39 12/01/19 07:39 Labs: Abnormal Lab Results - Last 24 Hours (Table) 12/01/19 12/01/19 Range/Units 07:39 07:39 WBC 18.7 H (3.8-10.6) k/uL Neutrophils # 15.5 H (1.3-7.7) k/uL Sodium 134 L (137-145) mmol/L Creatinine 0.62 L (0.66-1.25) mg/dL Glucose 155 H (74-99) mg/dL Calcium 7.9 L (8.4-10.2) mg/dL Microbiology - Last 24 Hours (Table) 11/30/19 18:50 Gram Stain - Preliminary Other - Other Wound Culture - Preliminary 11/30/19 18:50 Anaerobic Culture - Preliminary Other - Other 11/28/19 12:58 Blood Culture - Preliminary Blood No Growth after 48 hours Assessment and Plan Assessment: Abdominal pain secondary to diverticulitis with perforation, pneumoperitoneum. status post exploratory laparotomy with sigmoid colectomy and colostomy, postop day #1 possible urinary tract infection Sepsis secondary to diverticulitis Mild transaminitis improved now Hypovolemic hyponatremia History of anxiety GI prophylaxis with Pepcid DVT prophylaxis heparin subcu Plan: Patient will be continued on IV hydration, continue with antibiotic and follow- up Zosyn and follow-up blood culture reports. urinalysis shows some leukocytes and will initiate IV ceftriaxone while awaiting cultures. Blood cultures remain negative although white count continues to elevate. patient with intermittent low-grade fevers. Will continue to monitor vital signs and labs closely. Infectious disease is following. We will follow-up closely and make further recommendations based on the clinical course. Will repeat a.m. labs. Further recommendations to follow. Thank you for your consult.
[2019-12-01] MEDS ORDERED: ACETAMINOPHEN TAB 325 MG TAB PO PRN (17:29)
[2019-12-01 17:56] LABS: Glucose,Whole Blood 166 mg/dL (75-99)
[2019-12-01] MEDS: ROPIVACAINE 250 MG, HYDROMORPHONE (PF) 5 MG in SODIUM CHLORIDE 0.9% 200 ML EPIDURAL PRN (19:17)
[2019-12-02] MEDS: D5-0.45% NACL WITH KCL 20MEQ/L 1,000 ML IV SCH ×3 (02:49→19:14)
--- NOTE | 2019-12-02 02:56 | PN ---
PROGRESS NOTE DATE OF SERVICE: 12/01/2019 REASON FOR FOLLOWUP: Abdominal abscess from perforated diverticulitis. INTERVAL HISTORY: Patient is currently afebrile, has been breathing comfortably. The patient's abdominal pain is currently controlled. He is still having some hiccups, but no nausea, no vomiting. No worsening abdominal pain. PHYSICAL EXAMINATION: Blood pressure 134/80 with a pulse of 111, temperature 99.9. He is 95% on room air. General description is a middle-aged male up in the chair in no distress. Respiratory system: Unlabored breathing, clear to auscultation anteriorly. Heart S1, S2. Regular rate and rhythm. Abdomen soft, mild distended. No guarding, no rigidity. LABS: Hemoglobin 13.5, white count 15.7, BUN of 17, creatinine 0.62. Abdominal cultures currently pending. DIAGNOSTIC IMPRESSION AND PLAN: Patient with abdominal abscess from perforated sigmoid diverticulitis status post laparotomy and diverting colostomy. The patient is covered with Zosyn and cultures were followed. Family had multiple questions. All were answered in layman terms. MMODL / IJN: [id number] /
[2019-12-02] MEDS: HEPARIN SODIUM,PORCINE 5,000 UNIT/ML 1 ML VIAL SQ SCH ×3 (07:32→23:49)
[2019-12-02] MEDS: PIPERACILLIN-TAZOBACTAM 3.375 GM in SODIUM CHLORIDE 0.9% 100 ML IVPB SCH ×3 (07:32→23:49)
[2019-12-02] MEDS: ALPRAZolam 0.5 MG TAB PO PRN (07:32)
[2019-12-02] MEDS: FAMOTIDINE 20 MG/2 ML VIAL IV SCH ×2 (07:32→20:33)
[2019-12-02 07:33] LABS: African American GFR (CKD) >90 (>60 ml/min/1.73 sqM); Anion Gap 7 mmol/L; Blood Urea Nitrogen 8 mg/dL (9-20); Carbon Dioxide 29 mmol/L (22-30); Chloride 98 mmol/L (98-107); Glucose 141 mg/dL (74-99); Non-African American GFR(CKD) >90 (>60 ml/min/1.73 sqM); Potassium 4.1 mmol/L (3.5-5.1); Sodium 134 mmol/L (137-145)
[2019-12-02 07:46] LABS: Basophils # (A) 0.1 k/uL (0-0.2); Basophils % (A) 1 %; Eosinophils # (A) 0.3 k/uL (0-0.7); Eosinophils % (A) 2 %; HCT 39.4 % (39.0-53.0); Lymphocytes # (A) 1.7 k/uL (1.0-4.8); Lymphocytes % (A) 11 %; MCH 29.4 pg (25.0-35.0); Mean Platelet Volume 7.1; Monocytes # (A) 0.8 k/uL (0-1.0); Monocytes % (A) 5 %; Neutrophils # (A) 11.7 k/uL (1.3-7.7); Neutrophils % (A) 78 %; Platelet Count 445 k/uL (150-450); RBC 4.43 m/uL (4.30-5.90); RDW 12.8 % (11.5-15.5); WBC 14.9 k/uL (3.8-10.6)
[2019-12-02] MEDS: SODIUM CHLORIDE 0.9% 1,000 ML IV SCH ×2 (10:52→11:25)
--- NOTE | 2019-12-02 11:36 | P.PN ---
Progress Note - Text Progress Note Date: 12/02/19 (7935) Anesthesia Postop day 2 Status post exploratory laparotomy with epidural catheter day 3 Patient seen and examined. Doing well without complaint. VAS less than 4. No nausea or vomiting. Mild pruritus. Currently running at 8 mL an hour. Objective: Vital signs reviewed Lungs: Good chest excursion Abdomen: Appears nondistended Other: Epidural Site Intact without induration. Dressing intact Neuro: No apparent motor block. Sensory within normal limits. Assessment: Status post exploratory laparotomy postop day 2 Plan: Continue current care with your medical management. Anticipate catheter discontinued tomorrow. Platelets 445. Only subcu heparin onboard.
[2019-12-02 13:43] LABS: Hemoglobin A1C 5.5 % (4.0-6.0)
--- NOTE | 2019-12-02 15:58 | P.PN ---
Subjective Progress Note Date: 12/02/19 CHIEF COMPLAINT: Perforated diverticulitis HISTORY OF PRESENT ILLNESS: The patient is a 44-year-old male status post descending colostomy for perforated diverticulitis, 11/30/2019. WBC elevated over 18,000 yesterday. He complains of lower incisional pain with movement. He has increased eructations. No nausea or vomiting. ROS: No bowel movements. No new chest pain. No productive sputum PHYSICAL EXAM: VITAL SIGNS: Reviewed CONSTITUTIONAL: Well developed and in no acute distress. EYES: Conjuctivae without sclera icterus. Extraocular movements grossly intact. HEAD, EARS, NOSE, THROAT: Moist buccal mucosa. Head is atraumatic, normocephalic. Hears conversational speech. No nasal drainage. NECK: Supple. No thyroidomegaly. RESPIRATORY: Non-labored respirations and equal bilateral excursions. CARDIOVASCULAR: Palpable 2+ radial pulses. ABDOMEN: Ostomy pink patent. Minimal flatus. Dressings intact. MUSCULOSKELETAL: No gross deformity of the lower extremities noted. No clubbing. No cyanosis. SKIN: Good skin turgor. Well perfused. NEUROLOGIC: Cranial nerves II through XII grossly intact. No focal or lateralizing signs. PSYCH: Appropriate affect. Alert and oriented to person, place and time. CLINICAL LABS: White blood cell count down from 18,700 to 14,900 ASSESSMENT: 1. Acute diverticulitis PLAN: 1. All questions addressed. 2. WBC improved. 3. Reglan ordered. 4. Continue intravenous antibiotics. 5. Dietitian consult for diverticulitis. 6. Continue epidural per anesthesia protocol. Objective - Vital Signs Vital signs: Vital Signs Temp 99.2 F 12/02/19 14:10 Pulse 107 H 12/02/19 14:10 Resp 17 12/02/19 14:10 BP 140/84 12/02/19 14:10 Pulse Ox 97 12/02/19 14:10 Intake & Output 12/01/19 12/02/19 12/02/19 18:59 06:59 18:59 Intake Total 1810 1520 Output Total 903 408 4010 Balance -790 1110 270 Weight 81.647 kg Intake: Intake, IV Titration 1600 1400 Amount D5-0.45% NaCl with KCl 1500 1250 20Meq/l 1,000 ml @ 125 mls/hr IV .Q8H [facility] Rx#: [id number] Piperacillin-Tazobactam 3 100 100 .375 gm In Sodium Chloride 0.9% 100 ml @ 25 mls/hr IVPB Q8HR [facility] Rx# :[id number] cefTRIAXone 1 gm In 50 Sodium Chloride 0.9% 50 ml @ 100 mls/hr IVPB Q24HR [facility] Rx#:[id number] Oral 210 120 Output: Drainage 80 Right Lower Abdomen 80 Urine 082 547 4530 Uretheral ([place]) 385 Other: Voiding Method Indwelling Catheter Indwelling Catheter Indwelling Catheter # Voids 1 - Labs CBC & Chem 7: 12/03/19 07:21 12/02/19 07:00 Labs: Abnormal Lab Results - Last 24 Hours (Table) 12/01/19 12/02/19 12/02/19 Range/Units 17:54 07:00 07:00 WBC 14.9 H (3.8-10.6) k/uL Neutrophils # 11.7 H (1.3-7.7) k/uL Sodium 134 L (137-145) mmol/L BUN 8 L (9-20) mg/dL Creatinine 0.52 L (0.66-1.25) mg/dL Glucose 141 H (74-99) mg/dL POC Glucose (mg/dL) 166 H (75-99) mg/dL Calcium 8.0 L (8.4-10.2) mg/dL Microbiology - Last 24 Hours (Table) 11/28/19 12:58 Blood Culture - Preliminary Blood No Growth after 96 hours 12/01/19 14:00 Urine Culture - Preliminary Urine,Clean Catch 11/30/19 18:50 Gram Stain - Preliminary Other - Other Wound Culture - Preliminary Assessment and Plan (1) Colostomy status Current Visit: Yes Status: Acute Code(s): Z93.3 - COLOSTOMY STATUS SNOMED Code(s): 546155299 (2) Diverticulitis of colon with perforation Current Visit: Yes Status: Acute Code(s): K57.20 - DVTRCLI OF LG INT W PERFORATION AND ABSCESS W/O BLEEDING SNOMED Code(s): 96295861 (3) Sepsis Current Visit: Yes Status: Acute Code(s): A41.9 - SEPSIS, UNSPECIFIED ORGANISM SNOMED Code(s): 31607735
[2019-12-02] MEDS: METOCLOPRAMIDE 5 MG/ML 2 ML VIAL IVP SCH ×2 (16:25→22:14)
--- NOTE | 2019-12-02 17:26 | PN ---
PROGRESS NOTE DATE OF SERVICE: 12/02/2019 REASON FOR FOLLOWUP: Abdominal abscess from perforated diverticulitis. INTERVAL HISTORY: Patient is currently afebrile. The last temperature has been 99.9. The patient is feeling slightly better. Abdominal pain is currently controlled. Denies having any chest pain, shortness of breath or cough. No output in his colostomy bag. PHYSICAL EXAMINATION: Blood pressure 140/84 with a pulse of 107, temperature 99.2. He is 97% on room air. General description is a middle-aged male up in the chair in no distress. Respiratory system: Unlabored breathing, clear to auscultation anteriorly. Heart S1, S2. Regular rate and rhythm. Abdomen is soft, mildly distended. No guarding or rigidity. LABS: Hemoglobin 13, white count 14.9, BUN of 8, creatinine 0.52. Abdominal cultures currently pending. DIAGNOSTIC IMPRESSION AND PLAN: Patient with abdominal abscess from perforated sigmoid diverticulitis status post diverting colostomy. Abdominal culture is pending. Continue with Zosyn. White count trending down and continue to monitor clinical course closely. MMODL / IJN: [id number] /
--- NOTE | 2019-12-03 00:11 | P.PN ---
Subjective Progress Note Date: 12/02/19 Principal diagnosis: Abdominal pain secondary to diverticulitis with perforation, pneumoperitoneum. status post exploratory laparotomy with sigmoid colectomy and colostomy Patient is a 44-year-old male with a known history of anxiety came to ER with complaints of abdominal pain for the past 5 days. Mainly in the lower abdomen. Pain is associated with nausea and couple episodes of diarrhea. Denied any blood in the stool. No dysuria or hematuria. Patient was seen at [facility] and was started on Bactrim. Patient took 3 days of antibiotics and symptoms seemed to improve but greatly worsened last 24 hours. Patient presents to ER for evaluation. Patient does have fever and chills at home. No complaints of chest pain or shortness breath. No cough or sputum production. Denies any recent illness. Denies any unusual food intake. Patient does have issues with constipation on and off. CT of the abdomen pelvis showed findings likely represent diverticulitis with perforation, pneumoperitoneum. Laboratory data showed WBC 11.2, hemoglobin 15.3, platelets 280 Sodium 133, chloride 97, BUN 49 creatinine 0.82 Total bilirubin is 1.6 AST 46 and ALT 52, alk phos 181 Urinalysis showed 4+ ketones nitrite negative and leukocyte esterase negative T- max was 103.2 on admission. Patient was tachycardic on admission. 11/30/2019 Patient is seen and evaluated and follow-up and continues to have some abdominal discomfort in the lower left and right quadrants and is had multiple episodes of diarrhea throughout the night. He should white blood count today slightly eleva carlos alberto from previous at 17.5, current sodium is 131. Patient underwent a CAT scan of the abdomen showing diffuse edema in the mesentery as well as inflammatory changes surrounding the sigmoid colon with pneumoperitoneum compatible with bowel perforation along with a small amount of free fluid and air noted suggestive of a developing abscess along with dilated small bowel loops and severe inflammatory changes within the pelvis. Patient will be scheduled for surgery today for laparotomy, incision and drainage of the abscess, and colostomy. Family at the bedside and made aware of these findings and will be discussed with surgery about the procedure. Patient denies any chest pain, shortness of breath, or palpitations. Patient was on clear liquids this morning and continues to have hiccups quite often today. Patient denies any nausea or vomiting. Patient is afebrile. Patient is currently maintained on IV antibiotics in the form of Zosyn and will continue at this time. Infectious disease has been consulted. 12/01/2019 Patient is seen in follow-up status post exploratory laparotomy with colectomy colostomy placement and is being closely monitored. Following along closely with surgery. Patient continues to have an epidural pain pump along with an indwelling Carrasco catheter. Patient is having some burning with urination along with leaking around the Carrasco catheter. Carrasco catheter was replaced and a urinalysis was obtained with reflex to culture. Will initiate IV ceftriaxone and patient is also maintained on Zosyn and will continue at this time. infectious disease is following. patient is sitting up in the chair and states he has had no gas or stool noted in the ostomy as of yet. Patient's pain is well managed with the epidural pump. 12/02/2019 Patient is currently resting in the bed comfortably. Abdominal pain is better. No complaints of fever or chills. Leukocytosis improving. Currently being continued on antibiotics in the form of Zosyn. No chest pain or shortness of breath. Encourage ambulation and incentive spirometry. Follow-up culture reports. Urine culture showed no growth. Wound culture showed Pseudomonas species. ID is on board. Patient is currently nothing by mouth. Review of systems: constitutional: No reports of fatigue, fevers, or chills Cardiovascular: No reports of chest pain or palpitations Respiratory: No reports of shortness of breath or cough GI: No reports of nausea, vomiting, or diarrhea : reports some dysuria and leaking around the indwelling Carrasco catheter Objective - Vital Signs Vital signs: Vital Signs Temp 99.7 F H 12/02/19 20:58 Pulse 106 H 12/02/19 20:58 Resp 20 12/02/19 20:58 BP 130/91 12/02/19 20:58 Pulse Ox 98 12/02/19 20:58 Intake & Output 12/02/19 12/02/19 12/03/19 06:59 18:59 06:59 Intake Total 1810 1640 0 Output Total 700 2150 1030 Balance 1110 -510 -1030 Intake: Intake, IV Titration 1600 1400 Amount D5-0.45% NaCl with KCl 1500 1250 20Meq/l 1,000 ml @ 125 mls/hr IV .Q8H [facility] Rx#: [id number] Piperacillin-Tazobactam 3 100 100 .375 gm In Sodium Chloride 0.9% 100 ml @ 25 mls/hr IVPB Q8HR [facility] Rx# :[id number] cefTRIAXone 1 gm In 50 Sodium Chloride 0.9% 50 ml @ 100 mls/hr IVPB Q24HR [facility] Rx#:[id number] Oral 210 240 0 Output: Drainage 30 Right Lower Abdomen 30 Urine 700 2150 1000 Other: Voiding Method Indwelling Catheter Indwelling Catheter # Voids 1 - Exam Patient is Sitting up in the chair, awake alert and oriented x3, well-developed, well-nourished.. HEENT: Normocephalic. Neck is supple. Pupils reactive. Nostrils clear. Oral cavity is moist. Ears reveal no drainage. Neck reveals no JVD, carotid bruits, or thyromegaly. CHEST EXAMINATION: Trachea is central. Symmetrical expansion. Lung schmidt clear to auscultation and percussion. CARDIAC: Normal S1, S2 with no gallops. No murmurs ABDOMEN: Soft. mildly tender by the surgical site. No guarding or rigidity. sluggish bowel sounds present.. No abdominal bruits. ZECHARIAH drain noted along with colostomy bag with some mild serous drainage noted no stool noted Extremities: reveal no edema. No clubbing or cyanosis bilateral SCDs noted Neurologically awake, alert, oriented x3 with well-coordinated movements. No focal deficits noted Skin: No rash or skin lesions. Psychiatric: Cooperative. Non-suicidal Musculoskeletal: No joint swelling or deformity. Normal range of motion. - Labs CBC & Chem 7: 12/02/19 07:00 12/02/19 07:00 Labs: Abnormal Lab Results - Last 24 Hours (Table) 12/02/19 12/02/19 Range/Units 07:00 07:00 WBC 14.9 H (3.8-10.6) k/uL Neutrophils # 11.7 H (1.3-7.7) k/uL Sodium 134 L (137-145) mmol/L BUN 8 L (9-20) mg/dL Creatinine 0.52 L (0.66-1.25) mg/dL Glucose 141 H (74-99) mg/dL Calcium 8.0 L (8.4-10.2) mg/dL Microbiology - Last 24 Hours (Table) 12/01/19 14:00 Urine Culture - Final Urine,Clean Catch 11/28/19 12:58 Blood Culture - Preliminary Blood No Growth after 96 hours Assessment and Plan Assessment: Abdominal pain secondary to diverticulitis with perforation, pneumoperitoneum. status post exploratory laparotomy with sigmoid colectomy and colostomy possible urinary tract infection. cx negative. Sepsis secondary to diverticulitis Mild transaminitis improved now Hypovolemic hyponatremia History of anxiety GI prophylaxis with Pepcid DVT prophylaxis heparin subcu Plan: Patient will be continued on IV hydration, continue with antibiotic and follow- up Zosyn and follow-up blood culture reports. urinalysis shows some leukocytes . awaiting cultures. Blood cultures remain negative. WBC improving. Will continue to monitor vital signs and labs closely. Infectious disease is following. We will follow-up closely and make further recommendations based on the clinical course. Will repeat a.m. labs. Further recommendations to follow. Time with Patient: Greater than 30
[2019-12-03] MEDS: SODIUM CHLORIDE 0.9% 1,000 ML IV SCH ×3 (00:56→16:07)
[2019-12-03] MEDS: ROPIVACAINE 250 MG, HYDROMORPHONE (PF) 5 MG in SODIUM CHLORIDE 0.9% 200 ML EPIDURAL PRN (01:55)
[2019-12-03] MEDS: D5-0.45% NACL WITH KCL 20MEQ/L 1,000 ML IV SCH ×2 (01:57→10:20)
[2019-12-03] MEDS: METOCLOPRAMIDE 5 MG/ML 2 ML VIAL IVP SCH ×4 (04:13→22:25)
[2019-12-03 07:49] LABS: Basophils # (A) 0.1 k/uL (0-0.2); Basophils % (A) 1 %; Eosinophils # (A) 0.2 k/uL (0-0.7); Eosinophils % (A) 2 %; HCT 40.4 % (39.0-53.0); HGB 12.8 gm/dL (13.0-17.5); Lymphocytes # (A) 1.4 k/uL (1.0-4.8); Lymphocytes % (A) 12 %; MCH 28.3 pg (25.0-35.0); MCHC 31.7 g/dL (31.0-37.0); MCV 89.4 fL (80.0-100.0); Mean Platelet Volume 6.8; Monocytes # (A) 0.5 k/uL (0-1.0); Monocytes % (A) 4 %; Neutrophils # (A) 9.8 k/uL (1.3-7.7); Neutrophils % (A) 79 %; Platelet Count 465 k/uL (150-450); RBC 4.52 m/uL (4.30-5.90); RDW 12.7 % (11.5-15.5); WBC 12.3 k/uL (3.8-10.6)
--- NOTE | 2019-12-03 08:15 | P.PN ---
Progress Note - Text Progress Note Date: 12/03/19 (0086) Anesthesia Postop day 3 Status post exploratory laparotomy with epidural day 4 Patient seen and examined. Doing well.. VAS 0 out of 10. No nausea or vomiting. Mild pruritustolerable for patient requires no treatment. Ropivacaine 0.1% with Dilaudid 20 mcg/mL at 8 mL an hour. Objective: Vital signs reviewed Lungs: Good chest excursion Abdomen: Appears nondistended Other: Epidural Site Intact without induration. Dressing intact Neuro: No apparent motor block. Sensory within normal limits. Assessment: Status post exploratory laparotomy postop day 3 Plan: Continue current care with your medical management. Order written for discontinuation of epidural. Communicated with nurse. Hold subcu heparin for hours before pull, may give subcu heparin immediately after removal.
[2019-12-03] MEDS: PIPERACILLIN-TAZOBACTAM 3.375 GM in SODIUM CHLORIDE 0.9% 100 ML IVPB SCH ×2 (09:07→17:46)
[2019-12-03] MEDS: FAMOTIDINE 20 MG/2 ML VIAL IV SCH ×2 (09:07→20:29)
[2019-12-03] MEDS: HEPARIN SODIUM,PORCINE 5,000 UNIT/ML 1 ML VIAL SQ SCH ×2 (11:23→17:46)
[2019-12-03] MEDS: ALPRAZolam 0.5 MG TAB PO PRN ×2 (12:39→19:34)
--- NOTE | 2019-12-03 13:48 | P.PN ---
Subjective Progress Note Date: 12/03/19 CHIEF COMPLAINT: Perforated diverticulitis HISTORY OF PRESENT ILLNESS: The patient is a 44-year-old male status post descending colostomy for perforated diverticulitis, 11/30/2019. He reports pain with movement along his midline incision. His is at bedside. He has more hiccups today than yesterday. ROS: No bowel movements. No new chest pain. No productive sputum PHYSICAL EXAM: VITAL SIGNS: Reviewed CONSTITUTIONAL: Well developed and in no acute distress. EYES: Conjuctivae without sclera icterus. Extraocular movements grossly intact. HEAD, EARS, NOSE, THROAT: Moist buccal mucosa. Head is atraumatic, normocephalic. Hears conversational speech. No nasal drainage. RESPIRATORY: Non-labored respirations and equal bilateral excursions. CARDIOVASCULAR: Palpable 2+ radial pulses. ABDOMEN: Abdomen has increased distention. No stool in coloplast, only fluid. Minimal flatus. Dressings intact. MUSCULOSKELETAL: No gross deformity of the lower extremities noted. No clubbing. No cyanosis. SKIN: Good skin turgor. Well perfused. NEUROLOGIC: Cranial nerves II through XII grossly intact. No focal or lateralizing signs. PSYCH: Appropriate affect. Alert and oriented to person, place and time. CLINICAL LABS: White blood cell count down from 18,700 to 14,900 ASSESSMENT: 1. Acute diverticulitis PLAN: 1. Recommend abdominal xray for likely ileus 2. Ambulation encouraged 3. Possible placement of NG tube described for leus 4. Abdominal binder for comfort Objective - Vital Signs Vital signs: Vital Signs Temp 99.0 F 12/03/19 05:43 Pulse 94 12/03/19 05:43 Resp 18 12/03/19 05:43 BP 145/89 12/03/19 05:43 Pulse Ox 97 12/03/19 05:43 Intake & Output 12/02/19 12/03/19 12/03/19 18:59 06:59 18:59 Intake Total 1640 1545.067 Output Total 2150 2860 Balance -510 -1314.933 Weight 81.647 kg Intake: Intake, IV Titration 1400 1545.067 Amount D5-0.45% NaCl with KCl 1250 1200 20Meq/l 1,000 ml @ 125 mls/hr IV .Q8H [facility] Rx#: [id number] Piperacillin-Tazobactam 3 100 100 .375 gm In Sodium Chloride 0.9% 100 ml @ 25 mls/hr IVPB Q8HR [facility] Rx# :[id number] Ropivacaine 250 mg 245.067 Hydromorphone (Pf) 5 mg In Sodium Chloride 0.9% 200 ml @ Per Protocol EPIDURAL .Q0M PRN Rx#: [id number] cefTRIAXone 1 gm In 50 Sodium Chloride 0.9% 50 ml @ 100 mls/hr IVPB Q24HR [facility] Rx#:[id number] Oral 240 0 Output: Drainage 60 Right Lower Abdomen 60 Urine 2150 2800 Other: Voiding Method Indwelling Catheter Indwelling Catheter # Voids 1 - Labs CBC & Chem 7: 12/03/19 07:21 12/02/19 07:00 Labs: Abnormal Lab Results - Last 24 Hours (Table) 12/03/19 Range/Units 07:21 WBC 12.3 H (3.8-10.6) k/uL Hgb 12.8 L (13.0-17.5) gm/dL Plt Count 465 H (150-450) k/uL Neutrophils # 9.8 H (1.3-7.7) k/uL Microbiology - Last 24 Hours (Table) 11/30/19 18:50 Gram Stain - Preliminary Other - Other Wound Culture - Preliminary Pseudomonas spec 12/01/19 14:00 Urine Culture - Final Urine,Clean Catch 11/28/19 12:58 Blood Culture - Preliminary Blood No Growth after 96 hours
[2019-12-03] MEDS: HYDROmorphone 0.5 MG/0.5 ML SYRINGE IVP PRN (14:37)
--- NOTE | 2019-12-03 15:08 | XR ---
EXAMINATION TYPE: XR abdomen 2V DATE OF EXAM: 12/03/2019 COMPARISON: NONE HISTORY: Pain TECHNIQUE: 3 views supine and upright FINDINGS: There are multiple dilated air and fluid-filled loops of small bowel in the mid abdomen. Th ere is some contrast material in the large bowel. There are skin jamal over the lower abdomen. Ther e is drainage catheter over the pelvis. I see no evidence of free air. IMPRESSION: Dilated small bowel. Large bowel pattern is fairly normal. Origin of the contrast materia l in the large bowel is not clear. I would consider possibilities of mechanical small bowel obstructi on and severe small bowel ileus. No free air.
--- NOTE | 2019-12-03 23:41 | P.PN ---
Subjective Progress Note Date: 12/03/19 Principal diagnosis: Abdominal pain secondary to diverticulitis with perforation, pneumoperitoneum. status post exploratory laparotomy with sigmoid colectomy and colostomy Patient is a 44-year-old male with a known history of anxiety came to ER with complaints of abdominal pain for the past 5 days. Mainly in the lower abdomen. Pain is associated with nausea and couple episodes of diarrhea. Denied any blood in the stool. No dysuria or hematuria. Patient was seen at [facility] and was started on Bactrim. Patient took 3 days of antibiotics and symptoms seemed to improve but greatly worsened last 24 hours. Patient presents to ER for evaluation. Patient does have fever and chills at home. No complaints of chest pain or shortness breath. No cough or sputum production. Denies any recent illness. Denies any unusual food intake. Patient does have issues with constipation on and off. CT of the abdomen pelvis showed findings likely represent diverticulitis with perforation, pneumoperitoneum. Laboratory data showed WBC 11.2, hemoglobin 15.3, platelets 280 Sodium 133, chloride 97, BUN 49 creatinine 0.82 Total bilirubin is 1.6 AST 46 and ALT 52, alk phos 181 Urinalysis showed 4+ ketones nitrite negative and leukocyte esterase negative T- max was 103.2 on admission. Patient was tachycardic on admission. 11/30/2019 Patient is seen and evaluated and follow-up and continues to have some abdominal discomfort in the lower left and right quadrants and is had multiple episodes of diarrhea throughout the night. He should white blood count today slightly eleva carlos alberto from previous at 17.5, current sodium is 131. Patient underwent a CAT scan of the abdomen showing diffuse edema in the mesentery as well as inflammatory changes surrounding the sigmoid colon with pneumoperitoneum compatible with bowel perforation along with a small amount of free fluid and air noted suggestive of a developing abscess along with dilated small bowel loops and severe inflammatory changes within the pelvis. Patient will be scheduled for surgery today for laparotomy, incision and drainage of the abscess, and colostomy. Family at the bedside and made aware of these findings and will be discussed with surgery about the procedure. Patient denies any chest pain, shortness of breath, or palpitations. Patient was on clear liquids this morning and continues to have hiccups quite often today. Patient denies any nausea or vomiting. Patient is afebrile. Patient is currently maintained on IV antibiotics in the form of Zosyn and will continue at this time. Infectious disease has been consulted. 12/01/2019 Patient is seen in follow-up status post exploratory laparotomy with colectomy colostomy placement and is being closely monitored. Following along closely with surgery. Patient continues to have an epidural pain pump along with an indwelling Carrasco catheter. Patient is having some burning with urination along with leaking around the Carrasco catheter. Carrasco catheter was replaced and a urinalysis was obtained with reflex to culture. Will initiate IV ceftriaxone and patient is also maintained on Zosyn and will continue at this time. infectious disease is following. patient is sitting up in the chair and states he has had no gas or stool noted in the ostomy as of yet. Patient's pain is well managed with the epidural pump. 12/02/2019 Patient is currently resting in the bed comfortably. Abdominal pain is better. No complaints of fever or chills. Leukocytosis improving. Currently being continued on antibiotics in the form of Zosyn. No chest pain or shortness of breath. Encourage ambulation and incentive spirometry. Follow-up culture reports. Urine culture showed no growth. Wound culture showed Pseudomonas species. ID is on board. 12-02 Patient is currently lying in the bed awake alert and oriented x3. Since last night patient has been having abdominal bloating. Does have abdominal discomfort. No fever no chills. Leukocytosis is improving. Abdominal x-ray showed 1 dilated small bowel, large bowel pattern is fairly normal. Origin of the contrast material in the large bowel is not clear. Possibilities of mechanical small bowel obstruction severe small bowel ileus. No chest pain or shortness of breath. No headache or dizziness or lightheadedness. Patient is currently nothing by mouth. Review of systems: constitutional: No reports of fatigue, fevers, or chills Cardiovascular: No reports of chest pain or palpitations Respiratory: No reports of shortness of breath or cough GI: No reports of nausea, vomiting, or diarrhea. bloating. : Denied dysuria or hematuria. Objective - Vital Signs Vital signs: Vital Signs Temp 99.4 F 12/03/19 13:51 Pulse 80 12/03/19 15:58 Resp 18 12/03/19 15:58 BP 155/95 12/03/19 13:51 Pulse Ox 97 12/03/19 13:51 Intake & Output 12/03/19 12/03/19 12/04/19 06:59 18:59 06:59 Intake Total 7494.872 8423 Output Total 2860 1600 Balance -1314.933 -340 Weight 81.647 kg Intake: Intake, IV Titration 1545.067 900 Amount D5-0.45% NaCl with KCl 1200 800 20Meq/l 1,000 ml @ 125 mls/hr IV .Q8H [facility] Rx#: [id number] Piperacillin-Tazobactam 3 100 100 .375 gm In Sodium Chloride 0.9% 100 ml @ 25 mls/hr IVPB Q8HR [facility] Rx# :[id number] Ropivacaine 250 mg 245.067 Hydromorphone (Pf) 5 mg In Sodium Chloride 0.9% 200 ml @ Per Protocol EPIDURAL .Q0M PRN Rx#: [id number] Oral 0 360 Output: Drainage 60 Right Lower Abdomen 60 Urine 2800 1600 Other: Voiding Method Indwelling Catheter Toilet Urinal # Voids 1 - Exam Patient is Sitting up in the chair, awake alert and oriented x3, well-developed, well-nourished.. HEENT: Normocephalic. Neck is supple. Pupils reactive. Nostrils clear. Oral cavity is moist. Ears reveal no drainage. Neck reveals no JVD, carotid bruits, or thyromegaly. CHEST EXAMINATION: Trachea is central. Symmetrical expansion. Lung schmidt clear to auscultation and percussion. CARDIAC: Normal S1, S2 with no gallops. No murmurs ABDOMEN: Soft. mildly tender by the surgical site. No guarding or rigidity. sluggish bowel sounds present.Slightly distended.. No abdominal bruits. ZECHARIAH drain noted along with colostomy bag with some mild serous drainage noted no stool noted Extremities: reveal no edema. No clubbing or cyanosis bilateral SCDs noted Neurologically awake, alert, oriented x3 with well-coordinated movements. No focal deficits noted Skin: No rash or skin lesions. Psychiatric: Cooperative. Non-suicidal Musculoskeletal: No joint swelling or deformity. Normal range of motion. - Labs CBC & Chem 7: 12/03/19 07:21 12/02/19 07:00 Labs: Abnormal Lab Results - Last 24 Hours (Table) 12/03/19 Range/Units 07:21 WBC 12.3 H (3.8-10.6) k/uL Hgb 12.8 L (13.0-17.5) gm/dL Plt Count 465 H (150-450) k/uL Neutrophils # 9.8 H (1.3-7.7) k/uL Microbiology - Last 24 Hours (Table) 11/30/19 18:50 Anaerobic Culture - Final Other - Other Anaerobic Gram Positive Cocci Anaerobic Gm Negative Bacilli 11/30/19 18:50 Gram Stain - Final Other - Other Wound Culture - Final Pseudomonas aeruginosa 11/28/19 12:58 Blood Culture - Preliminary Blood No Growth after 120 hours 12/01/19 14:00 Urine Culture - Final Urine,Clean Catch Assessment and Plan Assessment: Abdominal pain secondary to diverticulitis with perforation, pneumoperitoneum. status post exploratory laparotomy with sigmoid colectomy and colostomy Abdominal distention secondary to ileus and possible small bowel obstruction. possible urinary tract infection. cx negative. Sepsis secondary to diverticulitis Mild transaminitis improved now Hypovolemic hyponatremia History of anxiety GI prophylaxis with Pepcid DVT prophylaxis heparin subcu Plan: Patient will be placed on NG tube. Nothing by mouth. Patient will be continued on IV hydration, continue with antibiotic and follow- up Zosyn and follow-up blood culture reports. urinalysis shows some leukocytes . awaiting cultures. Blood cultures remain negative. WBC improving. Will continue to monitor vital signs and labs closely. Infectious disease is following. We will follow-up closely and make further recommendations based on the clinical course. Will repeat a.m. labs. Further recommendations to follow. Time with Patient: Greater than 30
[2019-12-04] MEDS: HYDROmorphone 0.5 MG/0.5 ML SYRINGE IVP PRN ×3 (00:36→21:51)
--- NOTE | 2019-12-04 00:57 | PN ---
PROGRESS NOTE DATE OF SERVICE: 12/03/2019 REASON FOR FOLLOWUP: Abdominal abscess from a perforated sigmoid diverticulitis. INTERVAL HISTORY: The patient is currently afebrile, has been breathing comfortably. The patient abdominal pain is currently controlled. Denies having any chest pain or shortness of breath or cough. PHYSICAL EXAMINATION: Blood pressure 155/95 with a pulse of 87, temperature 99.4. He is 97% on room air. General description is a middle-aged male lying in bed in no distress. RESPIRATORY SYSTEM: Unlabored breathing, clear to auscultation anteriorly. HEART: S1, S2. Regular rate and rhythm. ABDOMEN: Soft, mildly distended and tender. LABS: Hemoglobin is 12.8, white count 12.3. Normal culture finalized with Pseudomonas aeruginosa. DIAGNOSTIC IMPRESSION AND PLAN: Patient with abdominal abscess from ruptured diverticulitis, status post diverting colostomy and drainage of the abscess. Culture with Pseudomonas aeruginosa. Patient is covered with Zosyn to continue and will monitor clinical course closely. MMODL / IJN: [id number] /
[2019-12-04] MEDS: HEPARIN SODIUM,PORCINE 5,000 UNIT/ML 1 ML VIAL SQ SCH ×3 (01:33→16:27)
[2019-12-04] MEDS: PIPERACILLIN-TAZOBACTAM 3.375 GM in SODIUM CHLORIDE 0.9% 100 ML IVPB SCH ×3 (01:33→16:25)
[2019-12-04] MEDS: SODIUM CHLORIDE 0.9% 1,000 ML IV SCH ×4 (01:40→23:04)
[2019-12-04] MEDS: D5-0.45% NACL WITH KCL 20MEQ/L 1,000 ML IV SCH ×3 (01:44→21:46)
[2019-12-04] MEDS: METOCLOPRAMIDE 5 MG/ML 2 ML VIAL IVP SCH ×4 (04:33→21:49)
[2019-12-04 07:17] LABS: Basophils # (A) 0.1 k/uL (0-0.2); Basophils % (A) 0 %; Eosinophils # (A) 0.2 k/uL (0-0.7); Eosinophils % (A) 2 %; HCT 40.8 % (39.0-53.0); HGB 13.4 gm/dL (13.0-17.5); Lymphocytes # (A) 1.5 k/uL (1.0-4.8); Lymphocytes % (A) 12 %; MCHC 32.8 g/dL (31.0-37.0); MCV 88.4 fL (80.0-100.0); Mean Platelet Volume 6.8; Monocytes # (A) 0.5 k/uL (0-1.0); Monocytes % (A) 4 %; Neutrophils % (A) 80 %; Platelet Count 530 k/uL (150-450); RBC 4.61 m/uL (4.30-5.90); RDW 12.7 % (11.5-15.5); WBC 12.5 k/uL (3.8-10.6)
[2019-12-04] MEDS: FAMOTIDINE 20 MG/2 ML VIAL IV SCH ×2 (08:25→21:03)
--- NOTE | 2019-12-04 12:23 | P.PN ---
Subjective From records Patient is a 44-year-old male with a known history of anxiety came to ER with complaints of abdominal pain for the past 5 days. Mainly in the lower abdomen. Pain is associated with nausea and couple episodes of diarrhea. Denied any b lood in the stool. No dysuria or hematuria. Patient was seen at [facility] and was started on Bactrim. Patient took 3 days of antibiotics and symptoms seemed to improve but greatly worsened last 24 hours. Patient presents to ER for evaluation. Patient does have fever and chills at home. No complaints of chest pain or shortness breath. No cough or sputum production. Denies any recent illness. Denies any unusual food intake. Patient does have issues with constipation on and off. CT of the abdomen pelvis showed findings likely represent diverticulitis with perforation, pneumoperitoneum. Laboratory data showed WBC 11.2, hemoglobin 15.3, platelets 280 Sodium 133, chloride 97, BUN 49 creatinine 0.82 Total bilirubin is 1.6 AST 46 and ALT 52, alk phos 181 Urinalysis showed 4+ ketones nitrite negative and leukocyte esterase negative T- max was 103.2 on admission. Patient was tachycardic on admission. Subjective: 12/04/2019 Patient is a pleasant 44 years old male who presents for perforated diverticulitis of the sigmoid colon was secondary abdominal abscess status post diverting colostomy, patient remains nothing by mouth but no vomiting, NG tube has been taken out. He had abdominal distention yesterday which is resolved today, colostomy back on the left lower quadrant is working with 1 bowel movement this morning, he had a lot of flatus passed off also. He has low-grade temperature however he is been afebrile for more than 24 hours, currently is on Zosyn Leukocytosis improving to 12.5 K, with cultures growing Pseudomonas and ID team on the case Objective - Vital Signs Vital signs: Vital Signs Temp 98.6 F 12/04/19 05:25 Pulse 87 12/04/19 05:25 Resp 16 12/04/19 05:25 BP 123/79 12/04/19 05:25 Pulse Ox 98 12/04/19 05:25 Intake & Output 12/03/19 12/04/19 12/04/19 18:59 06:59 18:59 Intake Total 1260 1475 Output Total 1600 460 Balance -340 1015 Weight 81.647 kg Intake: Intake, IV Titration 900 1475 Amount D5-0.45% NaCl with KCl 800 1375 20Meq/l 1,000 ml @ 125 mls/hr IV .Q8H [facility] Rx#: [id number] Piperacillin-Tazobactam 3 100 100 .375 gm In Sodium Chloride 0.9% 100 ml @ 25 mls/hr IVPB Q8HR [facility] Rx# :[id number] Oral 360 Output: Drainage 60 Right Lower Abdomen 60 Urine 1600 400 Other: Voiding Method Toilet Toilet Toilet Urinal Urinal Urinal # Voids 1 0 - Exam GENERAL: The patient is alert and oriented x3, not in any acute distress. Well developed, well nourished. HEENT: Pupils are round and equally reacting to light. EOMI. No scleral icterus. No conjunctival pallor. Normocephalic, atraumatic. No pharyngeal erythema. No thyromegaly. CARDIOVASCULAR: S1 and S2 present. No murmurs, rubs, or gallops. PULMONARY: Chest is clear to auscultation, no wheezing or crackles. -ABDOMEN: Soft, nontender, nondistended, normoactive bowel sounds. No palpable organomegaly. LLQ colostomy back. Clean and dry midline incision with a dressing in place MUSCULOSKELETAL: No joint swelling or deformity. EXTREMITIES: No cyanosis, clubbing, or pedal edema. NEUROLOGICAL: Gross neurological examination did not reveal any focal deficits. SKIN: No rashes. no petechiae. - Labs CBC & Chem 7: 12/04/19 06:43 12/02/19 07:00 Labs: Abnormal Lab Results - Last 24 Hours (Table) 12/04/19 Range/Units 06:43 WBC 12.5 H (3.8-10.6) k/uL Plt Count 530 H (150-450) k/uL Neutrophils # 10.0 H (1.3-7.7) k/uL Microbiology - Last 24 Hours (Table) 11/30/19 18:50 Anaerobic Culture - Final Other - Other Anaerobic Gram Positive Cocci Anaerobic Gm Negative Bacilli 11/30/19 18:50 Gram Stain - Final Other - Other Wound Culture - Final Pseudomonas aeruginosa 11/28/19 12:58 Blood Culture - Preliminary Blood No Growth after 120 hours Assessment and Plan Assessment: Diverticulitis of the sigmoid: Home with perforation and abdominal abscess, status post exploratory laparotomy with sigmoid colectomy and colostomy Abdominal distention secondary to ileus and possible small bowel obstruction. I mproving unLikely urinary tract infection. cx negative. Sepsis secondary to diverticulitis Mild transaminitis improved now Hypovolemic hyponatremia History of anxiety Plan: This is a pleasant 44 years old male who presents with diverticulitis and abdominal abscess, status post surgical exploratory laparotomy with sigmoid colectomy and colostomy. Today he looks more comfortable, histologic nothing by mouth. He had bowel movement. We will discuss with surgery team went to start diet This leukocytosis is stable on 12 K, no more fever. Continue with Zosyn. Continue with IV hydration Patient is followed by several consultants including ID and surgical team Labs and medication were reviewed.. Continue same treatment. Continue with symptomatic treatment. Resume home medication. Monitor lytes and vitals. DVT and GI prophylaxis. Further recommendations of the clinical course of the patient DVT prophylaxis: Subcutaneous heparin GI Prophylaxis: Pepcid PT/OT: Pending Prognosis is guarded
--- NOTE | 2019-12-04 12:58 | P.PN ---
Progress Note - Text Progress Note Date: 12/04/19 The patient's postoperative day 4. Patient underwent sigmoid colectomy for perforated diverticula is. Patient had some abdominal distention yesterday. Appears to have a small bowel ileus. Patient's had flatus and his colostomy appliance overnight. On exam vital signs are stable. Abdomen soft. It. Patient started on clear liquid diet today. He'll be observed closely and continue receive IV antibiotic.
[2019-12-04] MEDS: ALPRAZolam 0.5 MG TAB PO PRN (13:27)
[2019-12-04] MEDS: HYDROcodone/APAP 5-325MG 1 EACH TAB PO PRN (14:28)
[2019-12-04] MEDS: BENZOCAINE/MENTHOL LOZENG 1 EACH LOZENGE MUCOUS MEM PRN (16:59)
[2019-12-04] MEDS: ALPRAZolam 0.25 MG TAB PO PRN (21:48)
--- NOTE | 2019-12-04 23:14 | PN ---
PROGRESS NOTE DATE OF SERVICE: 12/04/2019 REASON FOR FOLLOWUP: Abdominal abscess from perforated sigmoid diverticulitis. INTERVAL HISTORY: The patient is currently afebrile. The patient is breathing comfortably. The patient's abdominal pain is currently controlled. No chest pain, shortness of breath or cough. Did have output in his colostomy bag. PHYSICAL EXAMINATION: Blood pressure 143/91 with a pulse of 83, temperature 98.4. He is 97% on room air. General description is a middle-aged male lying in bed in no distress. RESPIRATORY SYSTEM: Unlabored breathing. Clear to auscultation anteriorly. HEART: S1, S2. Regular rate and rhythm. ABDOMEN: Soft. No tenderness. LABS: Hemoglobin 13.4, white count 12.5. Abdominal culture with Pseudomonas aeruginosa and anaerobes. DIAGNOSTIC IMPRESSION AND PLAN: Patient with abdominal abscess from perforated sigmoid diverticulitis, status post diverting colostomy and drainage of the abscess. Culture with Pseudomonas and anaerobes. Patient is covered with Zosyn. May consider a short course of IV cefepime and Flagyl in the outpatient setting, for which the case liner will check his coverage. Continue with supportive care. MMODL / IJN: [id number] /
[2019-12-05] MEDS: PIPERACILLIN-TAZOBACTAM 3.375 GM in SODIUM CHLORIDE 0.9% 100 ML IVPB SCH ×4 (00:04→23:08)
[2019-12-05] MEDS: HEPARIN SODIUM,PORCINE 5,000 UNIT/ML 1 ML VIAL SQ SCH ×4 (00:05→23:09)
[2019-12-05] MEDS: D5-0.45% NACL WITH KCL 20MEQ/L 1,000 ML IV SCH ×3 (03:46→20:10)
[2019-12-05] MEDS: HYDROmorphone 0.5 MG/0.5 ML SYRINGE IVP PRN ×3 (03:46→19:12)
[2019-12-05] MEDS: ALPRAZolam 0.25 MG TAB PO PRN ×3 (03:47→20:09)
[2019-12-05] MEDS: METOCLOPRAMIDE 5 MG/ML 2 ML VIAL IVP SCH ×4 (03:47→23:09)
[2019-12-05] MEDS: SODIUM CHLORIDE 0.9% 1,000 ML IV SCH ×2 (04:07→14:58)
[2019-12-05] MEDS: FAMOTIDINE 20 MG/2 ML VIAL IV SCH ×2 (08:30→20:09)
[2019-12-05 09:39] LABS: Basophils # (A) 0.1 k/uL (0-0.2); Basophils % (A) 1 %; Eosinophils # (A) 0.2 k/uL (0-0.7); Eosinophils % (A) 2 %; HCT 43.3 % (39.0-53.0); HGB 13.7 gm/dL (13.0-17.5); Lymphocytes # (A) 1.4 k/uL (1.0-4.8); Lymphocytes % (A) 11 %; MCH 28.3 pg (25.0-35.0); MCHC 31.7 g/dL (31.0-37.0); MCV 89.4 fL (80.0-100.0); Monocytes # (A) 0.5 k/uL (0-1.0); Monocytes % (A) 4 %; Neutrophils # (A) 10.1 k/uL (1.3-7.7); Neutrophils % (A) 81 %; Platelet Count 657 k/uL (150-450); RBC 4.84 m/uL (4.30-5.90); WBC 12.6 k/uL (3.8-10.6)
[2019-12-05 09:50] LABS: African American GFR (CKD) >90 (>60 ml/min/1.73 sqM); Anion Gap 8 mmol/L; Blood Urea Nitrogen 4 mg/dL (9-20); Calcium 8.9 mg/dL (8.4-10.2); Carbon Dioxide 23 mmol/L (22-30); Chloride 104 mmol/L (98-107); Glucose 168 mg/dL (74-99); Non-African American GFR(CKD) >90 (>60 ml/min/1.73 sqM); Potassium 4.5 mmol/L (3.5-5.1); Sodium 135 mmol/L (137-145)
--- NOTE | 2019-12-05 11:54 | P.PN ---
Progress Note - Text Progress Note Date: 12/05/19 The patient feels better today. His abdominal pain is improved. He is passing flatus and stool through his colostomy bag. On exam vital signs are stable. Abdomen soft. Status post Tonja procedure for perforated diverticula is. Patient will be also discharged home tomorrow.
--- NOTE | 2019-12-05 15:24 | P.PN ---
Subjective Progress Note Date: 12/05/19 Principal diagnosis: Patient is a 44-year-old male with a known history of anxiety came to ER with complaints of abdominal pain for the past 5 days. Mainly in the lower abdomen. Pain is associated with nausea and couple episodes of diarrhea. Denied any blood in the stool. No dysuria or hematuria. Patient was seen at [facility] and was started on Bactrim. Patient took 3 days of antibiotics and symptoms seemed to improve but greatly worsened last 24 hours. Patient presents to ER for evaluation. Patient does have fever and chills at home. No complaints of chest pain or shortness breath. No cough or sputum production. Denies any recent illness. Denies any unusual food intake. Patient does have issues with constipation on and off. CT of the abdomen pelvis showed findings likely represent diverticulitis with perforation, pneumoperitoneum. Laboratory data showed WBC 11.2, hemoglobin 15.3, platelets 280 Sodium 133, chloride 97, BUN 49 creatinine 0.82 Total bilirubin is 1.6 AST 46 and ALT 52, alk phos 181 Urinalysis showed 4+ ketones nitrite negative and leukocyte esterase negative T- max was 103.2 on admission. Patient was tachycardic on admission. 12/04/2019 Patient is a pleasant 44 years old male who presents for perforated diverticulitis of the sigmoid colon was secondary abdominal abscess status post diverting colostomy, patient remains nothing by mouth but no vomiting, NG tube has been taken out. He had abdominal distention yesterday which is resolved today, colostomy back on the left lower quadrant is working with 1 bowel movement this morning, he had a lot of flatus passed off also. He has low-grade temperature however he is been afebrile for more than 24 hours, currently is on Zosyn Leukocytosis improving to 12.5 K, with cultures growing Pseudomonas and ID team on the case 12/05/2019 Patient was seen and evaluated in follow-up and continues to have some abdominal discomfort and intermittent nausea but was recently just started on clear liquids and tolerating. Patient denies any vomiting. Patient's abdominal distention has improved an NG tube was removed. Patient is currently maintained on IV antibiotics in the form of Zosyn and will continue at this time. Infectious disease is following. White blood count slowly trending down and is 12.6. Patient states he does have some gas and small amount of stool noted in the ostomy. Currently has no reports of chest pain, shortness of breath, or palpitations. Patient is afebrile. Wound culture finalization showing Pseudomonas aeruginosa. Case management following if patient will need assistance with discharge planning for possible IV antibiotic therapy. Objective - Vital Signs Vital signs: Vital Signs Temp 98.3 F 12/05/19 05:00 Pulse 86 12/05/19 05:00 Resp 18 12/05/19 05:00 BP 132/78 12/05/19 05:00 Pulse Ox 98 12/05/19 05:00 Intake & Output 12/04/19 12/05/19 12/05/19 18:59 06:59 18:59 Intake Total 2500 Output Total 60 200 Balance -60 2500 -200 Weight 81.647 kg Intake: Intake, IV Titration 1900 Amount D5-0.45% NaCl with KCl 1700 20Meq/l 1,000 ml @ 125 mls/hr IV .Q8H JEFFREY Rx#: [id number] Piperacillin-Tazobactam 3 200 .375 gm In Sodium Chloride 0.9% 100 ml @ 25 mls/hr IVPB Q8HR JEFFREY Rx# :[id number] Oral 600 Output: Drainage 60 Right Lower Abdomen 60 Urine 200 Other: Voiding Method Toilet Toilet Toilet Urinal Urinal Urinal # Voids 1 2 1 - Exam GENERAL: The patient is alert and oriented x3, not in any acute distress. Well developed, well nourished. HEENT: Pupils are round and equally reacting to light. EOMI. No scleral icterus. No conjunctival pallor. Normocephalic, atraumatic. No pharyngeal erythema. No thyromegaly. CARDIOVASCULAR: S1 and S2 present. No murmurs, rubs, or gallops. PULMONARY: Chest is clear to auscultation, no wheezing or crackles. -ABDOMEN: Soft, nontender, nondistended, normoactive bowel sounds. No palpable organomegaly. LLQ colostomy bag noted with gas in scant amounts of liquid stool. Clean and dry midline incision with a dressing in place MUSCULOSKELETAL: No joint swelling or deformity. EXTREMITIES: No cyanosis, clubbing, or pedal edema. NEUROLOGICAL: Gross neurological examination did not reveal any focal deficits. SKIN: No rashes. no petechiae. - Labs CBC & Chem 7: 12/05/19 09:13 12/05/19 09:13 Labs: Abnormal Lab Results - Last 24 Hours (Table) 12/05/19 12/05/19 Range/Units 09:13 09:13 WBC 12.6 H (3.8-10.6) k/uL Plt Count 657 H (150-450) k/uL Neutrophils # 10.1 H (1.3-7.7) k/uL Sodium 135 L (137-145) mmol/L BUN 4 L (9-20) mg/dL Creatinine 0.57 L (0.66-1.25) mg/dL Glucose 168 H (74-99) mg/dL Microbiology - Last 24 Hours (Table) 11/28/19 12:58 Blood Culture - Final Blood No Growth after 144 hours Assessment and Plan Assessment: Diverticulitis of the sigmoid: with perforation and abdominal abscess, status post exploratory laparotomy with sigmoid colectomy and colostomy Abdominal distention secondary to ileus and possible small bowel obstruction. Improving unLikely urinary tract infection. cx negative. Sepsis secondary to diverticulitis Mild transaminitis improved now Hypovolemic hyponatremia, improved History of anxiety GI prophylaxis: Pepcid DVT prophylaxis: subcu heparin Plan: Continue with current medications, management, and symptomatic treatment. Infectious disease closely following. White blood count trending down and is currently 12.6. Wound culture finalized showing pseudomonas aeruginosa and is currently maintained on IV Zosyn. Case management following with the possibility of outpatient IV antibiotic therapy. Defer to infectious disease. Will continue to follow along closely with surgery during hospitalization. Discussed with the patient about increasing activity as tolerated. Will repeat a.m. labs. Further recommendations to follow. Possible discharge in 24 hours
[2019-12-05 20:52] VITALS: RESP 18
--- NOTE | 2019-12-05 22:16 | PN ---
PROGRESS NOTE DATE OF SERVICE: 12/05/2019 REASON FOR FOLLOWUP: Abdominal abscess from a perforated diverticulitis. INTERVAL HISTORY: The patient is currently afebrile, has been breathing comfortably. The patient denies having any chest pain or shortness of breath or cough. Abdominal pain is currently controlled. He has been tolerating his diet. No nausea, no vomiting. Did have output in his colostomy bag. PHYSICAL EXAMINATION: Blood pressure 131/77 with a pulse of 94, temperature 98.6. He is 98% on room air. General description is a middle-aged male up in the bed in no distress. RESPIRATORY SYSTEM: Unlabored breathing. Clear to auscultation anteriorly. HEART: S1, S2. Regular rate and rhythm. ABDOMEN: Soft. No tenderness. No guarding or rigidity. LABS: Hemoglobin is 13.6, white count 12.6, BUN of 4, creatinine 0.57. DIAGNOSTIC IMPRESSION AND PLAN: Patient with abdominal abscess from a perforated diverticulitis, status post diverting colostomy. White count is still elevated. The patient will benefit from outpatient IV antibiotics. Currently waiting for insurance approval for outpatient cefepime and Flagyl for 2 weeks. Once arranged, he will be able to go home. Continue supportive care. MMODL / IJN: [id number] /
[2019-12-06] MEDS: HYDROmorphone 0.5 MG/0.5 ML SYRINGE IVP PRN (01:24)
[2019-12-06] MEDS: ALPRAZolam 0.25 MG TAB PO PRN (01:56)
[2019-12-06] MEDS: SODIUM CHLORIDE 0.9% 1,000 ML IV SCH ×3 (04:01→12:32)
[2019-12-06] MEDS: METOCLOPRAMIDE 5 MG/ML 2 ML VIAL IVP SCH ×3 (04:02→15:35)
[2019-12-06 06:35] LABS: Basophils # (A) 0.1 k/uL (0-0.2); Basophils % (A) 1 %; Eosinophils # (A) 0.2 k/uL (0-0.7); Eosinophils % (A) 2 %; HCT 41.8 % (39.0-53.0); HGB 13.5 gm/dL (13.0-17.5); Lymphocytes # (A) 1.6 k/uL (1.0-4.8); Lymphocytes % (A) 15 %; MCHC 32.2 g/dL (31.0-37.0); MCV 90.3 fL (80.0-100.0); Mean Platelet Volume 7.1; Monocytes # (A) 0.6 k/uL (0-1.0); Monocytes % (A) 6 %; Neutrophils # (A) 7.7 k/uL (1.3-7.7); Neutrophils % (A) 74 %; Platelet Count 543 k/uL (150-450); RBC 4.63 m/uL (4.30-5.90); RDW 12.7 % (11.5-15.5); WBC 10.4 k/uL (3.8-10.6)
[2019-12-06 06:39] LABS: African American GFR (CKD) >90 (>60 ml/min/1.73 sqM); Anion Gap 5 mmol/L; Blood Urea Nitrogen 4 mg/dL (9-20); Calcium 8.8 mg/dL (8.4-10.2); Carbon Dioxide 24 mmol/L (22-30); Chloride 106 mmol/L (98-107); Glucose 115 mg/dL (74-99); Non-African American GFR(CKD) >90 (>60 ml/min/1.73 sqM); Potassium 4.8 mmol/L (3.5-5.1); Sodium 135 mmol/L (137-145)
[2019-12-06] MEDS: D5-0.45% NACL WITH KCL 20MEQ/L 1,000 ML IV SCH ×2 (07:18→11:00)
[2019-12-06] MEDS: HEPARIN SODIUM,PORCINE 5,000 UNIT/ML 1 ML VIAL SQ SCH ×2 (07:24→15:35)
[2019-12-06] MEDS: FAMOTIDINE 20 MG/2 ML VIAL IV SCH (07:25)
[2019-12-06] MEDS: PIPERACILLIN-TAZOBACTAM 3.375 GM in SODIUM CHLORIDE 0.9% 100 ML IVPB SCH (07:25)
[2019-12-06 11:31] VITALS: BP 130/78; TEMP 98.2
--- NOTE | 2019-12-06 15:18 | P.PN ---
Subjective Progress Note Date: 12/06/19 Principal diagnosis: Patient is a 44-year-old male with a known history of anxiety came to ER with complaints of abdominal pain for the past 5 days. Mainly in the lower abdomen. Pain is associated with nausea and couple episodes of diarrhea. Denied any blood in the stool. No dysuria or hematuria. Patient was seen at [facility] and was started on Bactrim. Patient took 3 days of antibiotics and symptoms seemed to improve but greatly worsened last 24 hours. Patient presents to ER for evaluation. Patient does have fever and chills at home. No complaints of chest pain or shortness breath. No cough or sputum production. Denies any recent illness. Denies any unusual food intake. Patient does have issues with constipation on and off. CT of the abdomen pelvis showed findings likely represent diverticulitis with perforation, pneumoperitoneum. Laboratory data showed WBC 11.2, hemoglobin 15.3, platelets 280 Sodium 133, chloride 97, BUN 49 creatinine 0.82 Total bilirubin is 1.6 AST 46 and ALT 52, alk phos 181 Urinalysis showed 4+ ketones nitrite negative and leukocyte esterase negative T- max was 103.2 on admission. Patient was tachycardic on admission. 12/04/2019 Patient is a pleasant 44 years old male who presents for perforated diverticulitis of the sigmoid colon was secondary abdominal abscess status post diverting colostomy, patient remains nothing by mouth but no vomiting, NG tube has been taken out. He had abdominal distention yesterday which is resolved today, colostomy back on the left lower quadrant is working with 1 bowel movement this morning, he had a lot of flatus passed off also. He has low-grade temperature however he is been afebrile for more than 24 hours, currently is on Zosyn Leukocytosis improving to 12.5 K, with cultures growing Pseudomonas and ID team on the case 12/05/2019 Patient was seen and evaluated in follow-up and continues to have some abdominal discomfort and intermittent nausea but was recently just started on clear liquids and tolerating. Patient denies any vomiting. Patient's abdominal distention has improved an NG tube was removed. Patient is currently maintained on IV antibiotics in the form of Zosyn and will continue at this time. Infectious disease is following. White blood count slowly trending down and is 12.6. Patient states he does have some gas and small amount of stool noted in the ostomy. Currently has no reports of chest pain, shortness of breath, or palpitations. Patient is afebrile. Wound culture finalization showing Pseudomonas aeruginosa. Case management following if patient will need assistance with discharge planning for possible IV antibiotic therapy. 12/06/2019 Patient is seen in follow-up with no acute overnight issues. Scant amounts of stool noted in the ostomy with gas. Patient currently tolerating diet with no reports of vomiting or nausea noted. Patient's white blood count trending down is currently 10.4 today. Sodium is 135. No reports of chest pain, shortness of breath, or palpitations. Patient has been afebrile. Patient received a midline for continued IV antibiotic therapy. Patient is currently maintained on Flagyl and cefepime and will continue at this time. Infectious disease following. Case management following and making arrangements for IV antibiotic therapy in the outpatient setting. Will continue to follow along with surgery during hospitalization. Objective - Vital Signs Vital signs: Vital Signs Temp 98.2 F 12/06/19 11:05 Pulse 97 12/06/19 11:05 Resp 18 12/06/19 11:05 BP 130/78 12/06/19 11:05 Pulse Ox 98 12/06/19 04:12 Intake & Output 12/05/19 12/06/19 12/06/19 18:59 06:59 18:59 Intake Total 700 2760 Output Total 200 5 210 Balance 500 -5 2550 Weight 81.647 kg Intake: Intake, IV Titration 1200 Amount D5-0.45% NaCl with KCl 1000 20Meq/l 1,000 ml @ 125 mls/hr IV .Q8H JEFFREY Rx#: [id number] Piperacillin-Tazobactam 3 200 .375 gm In Sodium Chloride 0.9% 100 ml @ 25 mls/hr IVPB Q8HR JEFFREY Rx# :[id number] Oral 700 1560 Output: Drainage 5 10 Right Lower Abdomen 5 10 Urine 200 200 Other: Voiding Method Toilet Toilet Toilet Urinal Urinal Urinal # Voids 2 2 4 - Exam GENERAL: The patient is alert and oriented x3, not in any acute distress. Well d eveloped, well nourished. HEENT: Pupils are round and equally reacting to light. EOMI. No scleral icterus. No conjunctival pallor. Normocephalic, atraumatic. No pharyngeal erythema. No thyromegaly. CARDIOVASCULAR: S1 and S2 present. No murmurs, rubs, or gallops. PULMONARY: Chest is clear to auscultation, no wheezing or crackles. -ABDOMEN: Soft, nontender, nondistended, normoactive bowel sounds. No palpable organomegaly. LLQ colostomy bag noted with gas in scant amounts of liquid stool. Clean and dry midline incision with a dressing in place MUSCULOSKELETAL: No joint swelling or deformity. EXTREMITIES: No cyanosis, clubbing, or pedal edema. NEUROLOGICAL: Gross neurological examination did not reveal any focal deficits. SKIN: No rashes. no petechiae. - Labs CBC & Chem 7: 12/06/19 05:58 12/06/19 05:58 Labs: Abnormal Lab Results - Last 24 Hours (Table) 12/06/19 12/06/19 Range/Units 05:58 05:58 Plt Count 543 H (150-450) k/uL Sodium 135 L (137-145) mmol/L BUN 4 L (9-20) mg/dL Creatinine 0.63 L (0.66-1.25) mg/dL Glucose 115 H (74-99) mg/dL Assessment and Plan Assessment: Diverticulitis of the sigmoid: with perforation and abdominal abscess, status post exploratory laparotomy with sigmoid colectomy and colostomy Abdominal distention secondary to ileus and possible small bowel obstruction. Improved unLikely urinary tract infection. cx negative. Sepsis secondary to diverticulitis Mild transaminitis improved now Hypovolemic hyponatremia, improved History of anxiety GI prophylaxis: Pepcid DVT prophylaxis: subcu heparin Plan: Continue with current medications, management, and symptomatic treatment. Infectious disease closely following. White blood count trending down. Wound culture finalized showing pseudomonas aeruginosa and is currently maintained on IV cefepime and Flagyl. Case management following and has made arrangements for outpatient IV antibiotic therapy. Should to receive a midline today. Will cont inue to follow along closely with surgery during hospitalization. Discussed with the patient about increasing activity as tolerated. Further recommendations to follow. Patient is scheduled to be discharged today.
--- NOTE | 2019-12-06 15:30 | P.DS ---
Providers Date of admission: 11/28/19 13:09 Expected date of discharge: 12/06/19 Attending physician: Robert Yates Consults: 11/28/19 12:54 Consult Physician Urgent Consulting Provider: Noemy Francisco Consult Reason/Comments: Diverticulitis with perforation Do you want consulting provider notified?: Yes 11/28/19 17:25 Consult Physician Routine Consulting Provider: Saji Hickman Consult Reason/Comments: Medical management Do you want consulting provider notified?: Yes Primary care physician: Tiff Traylor Hospital Course: Discharge diagnosis 1. Perforated diverticulitis with abscess status post exploratory laparotomy with sigmoid colectomy and colostomy placement. Status post washout of peritoneal cavity. Date of surgery 11/30/2019 2. Sepsis secondary to diverticulitis Hospital course This is a 44-year-old male who presented with a 5 day history of abdominal pain. He underwent a CAT scan that showed evidence of diverticulitis with microperforation and therefore underwent exploratory laparotomy with sigmoid colectomy and colostomy placement and washout of peritoneal cavity. Wound culture has grown Pseudomonas. Patient followed by infectious disease service. Infectious diseases recommending 2 weeks of IV cefepime and 2 weeks of oral Flagyl. Patient is stable for discharge. He has tolerated diet. He is having stool through his colostomy. Vitals are stable and white count has normalized. Please refer to EMR for further details. Patient to follow-up with Dr. Yates in 1 week. I performed an examination of the patient and discussed their management with the physician Clinical Rehabilitation Coordinator. I have reviewed the Physician Clinical Rehabilitation Coordinator's notes and agree with the documented findings and plan of care Patient Condition at Discharge: Stable Plan - Discharge Summary New Discharge Prescriptions: New metroNIDAZOLE [Flagyl] 500 mg PO TID #42 tab Cefepime [Maxipime] 2 gm IVPB Q12H #28 bag HYDROcodone/APAP 5-325MG [Ethel 5-325] 1 each PO Q6HR PRN #12 tab PRN Reason: Pain Continue Famotidine [Pepcid AC] 10 mg PO BID ALPRAZolam [Xanax] 0.5 mg PO BID PRN PRN Reason: Anxiety Discontinued Sulfamethoxazole/Trimethoprim [Sulfamethoxazole-Tmp Ds Tablet] 1 tab PO BID Discharge Medication List Famotidine [Pepcid AC] 10 mg PO BID 11/28/19 [History] ALPRAZolam [Xanax] 0.5 mg PO BID PRN 11/29/19 [History] Cefepime [Maxipime] 2 gm IVPB Q12H #28 bag 12/06/19 [Rx] HYDROcodone/APAP 5-325MG [Ethel 5-325] 1 each PO Q6HR PRN #12 tab 12/06/19 [Rx] metroNIDAZOLE [Flagyl] 500 mg PO TID #42 tab 12/06/19 [Rx] Follow up Appointment(s)/Referral(s): [facility], [NON-STAFF] - 1 Week Tiff Traylor MD [Primary Care Provider] - 12/13/19 10:00 am Noemy Francisco MD [STAFF PHYSICIAN] - 12/19/19 2:30 pm Robert Yates MD [STAFF PHYSICIAN] - 12/14/19 1:45 pm Patient Instructions/Handouts: Diverticulitis (GEN), Colostomy Care (GEN) Activity/Diet/Wound Care/Special Instructions: Colostomy care recommendations for Home: Last pouching system change: 12.02.2019 Mr Oro will be supplied the following osotmy care supplies for care to home: [employer] flanges moldable #[id number] (3 for home) [employer] pouching system with filter 3 [facility]) No stign prep pads (10 [facility]) Osotmy Powder Mr Vazquez to change the entire pouching system every 3-5 days Empty the pouch while sittign of the toilet when the pocuh is 1/2 to 1/3 full Home Health please arrange for disposable pouches in 2 weeks from lamar Mr Oro will receive free sample osotmy supplies from [employer] and [place] once home - arrangements in place No driving while taking Ethel No lifting over 10 pounds You may shower. No soaking or tub baths Very light activity until you are reevaluated at your follow up appointment with your surgeon Discharge Disposition: HOME SELF-CARE
[2019-12-06] MEDS ORDERED: metroNIDAZOLE 500 MG TAB PO SCH (16:00)
[2019-12-06 16:32] VITALS: PULSE 70
[2019-12-06] MEDS ORDERED: CEFEPIME 2 GM in SODIUM CHLORIDE 0.9% 100 ML IVPB ONE (18:00)
--- NOTE | 2019-12-06 19:00 | PN ---
PROGRESS NOTE DATE OF SERVICE: 12/06/2019 REASON FOR FOLLOWUP: Abdominal abscess from perforated diverticulitis. INTERVAL HISTORY: The patient is currently afebrile. The patient has been breathing comfortably. The patient denies having any chest pain or shortness of breath or cough. Abdominal pain is currently controlled. No nausea, no vomiting. Did have output in his colostomy bag. PHYSICAL EXAMINATION: Blood pressure is 130/78 with a pulse of 97, temperature 98.2. He is 98% on room air. General description is a middle-aged male up in the chair in no distress. RESPIRATORY SYSTEM: Unlabored breathing. Clear to auscultation. HEART: S1, S2. Regular rate and rhythm. ABDOMEN: Soft. No tenderness. LABS: Hemoglobin 13.5, white count 10.4, BUN of 4, creatinine 0.63. DIAGNOSTIC IMPRESSION AND PLAN: Patient with abdominal abscess from a perforated diverticulitis, status post diverting colostomy. Abdominal culture with pseudomonas and anaerobes. Plan is for cefepime 2 grams q.12 and oral Flagyl for 2 weeks and close outpatient followup. Once antibiotic is arranged, he will be able to go home from ID standpoint. MMODL / IJN: [id number] /
--- NOTE | 2019-12-07 02:32 | CDI ---
Documentation Clarification Form Date: 12/07/2019 From: Omkar Cano Phone: If you have a question about this query, please contact Shelley Jhaveri Transit Mix Operator at [phone] between 8am and 5pm. Admit Date: 11/28/2019 Discharge Date: 12/06/2019 Patient Name: Christopher Oro Visit Number: [id number] ATTENTION: The Clinical Documentation Specialists (CDI) and [facility] Coding Staff appreciate your assistance in clarifying documentation. Please respond to the clarification below the line at the bottom and electronically sign. The CDI & [facility] Coding staff will review the response and follow-up if needed. Please note: Queries are made part of the Legal Health Record. If you have any questions, please contact the author of this message via ITS. Dear Robert Sun., Ileus is documented in the 12/04 progress note by Corinne Zambrano "Abdominal distention secondary to ileus and possible small bowel obstruction" Patients Admitting Diagnosis: Diverticulitis with Abscess and perforation Post-Operative Diagnosis:Diverticulitis with Abscess and perforation Procedure performed: [facility] Procedure History/Risk Factors: Diverticulitis Treatment: Colectomy Abdominal distention secondary to ileus and possible small bowel obstruction. In order to accurately reflect this patients severity of illness, please clarify if the Ileus: -has been ruled out -is a complication of surgical procedure -is an expected outcome of the surgical procedure -is related to co-morbid condition(s) of -Other please specify -Unable to determine Ileus is related to diverticulitis. HERMAND
[2019-12-07] MEDS ORDERED: CEFEPIME 2 GM in SODIUM CHLORIDE 0.9% 100 ML IVPB SCH (06:00)
== END 2019-12-06 18:20 | disposition home health service (06) | DRG 854 ==
LOC: EC 11:07 → 5NMEDONC 13:09
PROVIDERS: ADMIT Surgery; ATTEND Surgery
PROC: 0D1M0Z4 Bypass Descending Colon to Cutaneous, Open Approach (ICD-10-PCS; principal; 2019-11-30 17:22)
PROC: 0W9G0ZZ Drainage of Peritoneal Cavity, Open Approach (ICD-10-PCS; principal; 2019-11-30 17:22)
PROC: 0DJD0ZZ Inspection of Lower Intestinal Tract, Open Approach (ICD-10-PCS; principal; 2019-11-30 17:22)
PROC: 0DTN0ZZ Resection of Sigmoid Colon, Open Approach (ICD-10-PCS; principal; 2019-11-30 17:22)
DX: A41.9 Sepsis, unspecified organism (principal); K57.20 Diverticulitis of large intestine with perforation and abscess without bleeding; E87.1 Hypo-osmolality and hyponatremia; K56.7 Ileus, unspecified; F41.9 Anxiety disorder, unspecified; F17.200 Nicotine dependence, unspecified, uncomplicated; E86.0 Dehydration; E86.1 Hypovolemia; Z11.59 Encounter for screening for other viral diseases; L29.9 Pruritus, unspecified; B96.5 Pseudomonas (aeruginosa) (mallei) (pseudomallei) as the cause of diseases classified elsewhere; Z87.440 Personal history of urinary (tract) infections; Z79.899 Other long term (current) drug therapy
CPT/HCPCS: 36410; 36415; 74019; 74177; 76937; 80048; 80053; 81001; 82150; 83036; 83605; 83690; 83735; 85025; 87040; 87070; 87075; 87077; 87086; 87186; 87205; 88307; 96361; 96365; 96375; 99285

== ENCOUNTER 2019-12-17 23:35 | Emergency (ER) | payer BC ==
[2019-12-17 23:41] VITALS: TEMP 98.4
[2019-12-17] MEDS ORDERED: SODIUM CHLORIDE 0.9% 1,000 ML IV STA (23:51)
--- NOTE | 2019-12-17 23:59 | ED ---
General Adult HPI - General Chief complaint: Back Pain/Injury Stated complaint: Right flank pain Time Seen by Provider: 12/17/19 23:43 Source: patient, family Mode of arrival: ambulatory Limitations: no limitations - History of Present Illness Initial comments: 44-year-old male patient presents to the emergency department today for evaluation of right-sided abdominal pain and right flank pain. Patient states the pain started around 5 PM this evening and has been constant since. 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 He denies any nausea or vomiting. Denies fever or chills. He has noted that there has not been is much gas output in his colostomy today. He denies any hematochezia or melena. Denies any hematuria, dysuria, urinary frequency, urinary urgency. Denies other abdominal surgeries. Patient denies any recent rash, cough, shortness of breath, chest pain, numbness, tingling, dizziness, weakness, hematuria, dysuria, urinary urgency, urinary frequency, headache, visual changes, or any other complaints. - Related Data Home Medications Medication Instructions Recorded Confirmed Famotidine [Pepcid AC] 10 mg PO BID 11/28/19 11/28/19 ALPRAZolam [Xanax] 0.5 mg PO BID PRN 11/29/19 11/29/19 Previous Rx's Medication Instructions Recorded Cefepime [Maxipime] 2 gm IVPB Q12H #28 bag 12/06/19 HYDROcodone/APAP 5-325MG [Gardiner 1 each PO Q6HR PRN #12 tab 12/06/19 5-325] metroNIDAZOLE [Flagyl] 500 mg PO TID #42 tab 12/06/19 Ibuprofen [Motrin] 600 mg PO Q8HR PRN #30 tab 12/18/19 Tamsulosin HCl [Flomax] 0.4 mg PO DAILY #7 cap 12/18/19 Allergies Allergy/AdvReac Type Severity Reaction Status Date / Time No Known Allergies Allergy Verified 12/17/19 23:38 Review of Systems ROS Statement: Those systems with pertinent positive or pertinent negative responses have been documented in the HPI. ROS Other: All systems not noted in ROS Statement are negative. Past Medical History Additional Past Medical History / Comment(s): UTI History of Any Multi-Drug Resistant Organisms: None Reported Past Surgical History: Bowel Resection Additional Past Surgical History / Comment(s): bowel resection 11/30/19 Past Psychological History: Anxiety Smoking Status: Light tobacco smoker Past Alcohol Use History: Daily Past Drug Use History: None Reported General Exam Limitations: no limitations General appearance: alert, in no apparent distress, other (This is a well- developed, well-nourished adult male patient in no acute distress. Vital signs upon presentation are temperature 98.4F, pulse 99, respirations 20, blood pressure 145/90, pulse ox 99% on room air.) Eye exam: Present: normal appearance, PERRL, EOMI. Absent: scleral icterus, conjunctival injection, periorbital swelling Respiratory exam: Present: normal lung sounds bilaterally. Absent: respiratory distress, wheezes, rales, rhonchi, stridor Cardiovascular Exam: Present: regular rate, normal rhythm, normal heart sounds. Absent: systolic murmur, diastolic murmur, rubs, gallop, clicks GI/Abdominal exam: Present: soft, tenderness (RUQ, RLQ ), normal bowel sounds, other (Colostomy to left lower quadrant. Midline abdominal incision which is well approximated with no surrounding erythema or drainage.). Absent: distended, guarding, rebound, rigid Neurological exam: Present: alert, oriented X3, CN II-XII intact Psychiatric exam: Present: normal affect, normal mood Skin exam: Present: warm, dry, intact, normal color. Absent: rash Course Vital Signs 12/17/19 23:37 Temperature 98.4 F Pulse Rate 99 Respiratory 20 Rate Blood Pressure 145/90 O2 Sat by Pulse 99 Oximetry Medical Decision Making - Medical Decision Making 44-year-old male patient presents to the emergency department today for evaluation of right flank pain. Patient states this started around 5 PM. Physical examination did reveal some mild right CVA tenderness. Labs reviewed and are relatively unremarkable other than elevated lipase of 747. Also had some red blood cells in the urine. CT abdomen and pelvis was obtained and did reveal right-sided hydronephrosis and hydroureter with a 2 mm obstructing stone in the right ureterovesicular junction. I did discuss findings and results with the patient. He did receive IV fluids, pain medicine here, he is feeling better. He'll be discharged with Flomax and ibuprofen, he does have Gardiner at home. He is instructed to follow-up with urologist for further evaluation. Instructed follow up his primary care physician for recheck in 1-2 days. Return parameters were discussed in detail. He verbalizes understanding and agrees with this plan. - Lab Data Result diagrams: 12/18/19 00:03 12/18/19 00:03 Lab Results 12/18/19 12/18/19 12/18/19 Range/Units 00:03 00:03 00:03 WBC 11.2 H (3.8-10.6) k/uL RBC 4.78 (4.30-5.90) m/uL Hgb 13.8 (13.0-17.5) gm/dL Hct 42.0 (39.0-53.0) % MCV 87.9 (80.0-100.0) fL MCH 28.8 (25.0-35.0) pg MCHC 32.8 (31.0-37.0) g/dL RDW 13.4 (11.5-15.5) % Plt Count 270 (150-450) k/uL Neutrophils % 74 % Lymphocytes % 18 % Monocytes % 6 % Eosinophils % 1 % Basophils % 1 % Neutrophils # 8.2 H (1.3-7.7) k/uL Lymphocytes # 2.0 (1.0-4.8) k/uL Monocytes # 0.7 (0-1.0) k/uL Eosinophils # 0.1 (0-0.7) k/uL Basophils # 0.1 (0-0.2) k/uL Sodium 133 L (137-145) mmol/L Potassium 3.8 (3.5-5.1) mmol/L Chloride 103 (98-107) mmol/L Carbon Dioxide 21 L (22-30) mmol/L Anion Gap 9 mmol/L BUN 11 (9-20) mg/dL Creatinine 0.77 (0.66-1.25) mg/dL Est GFR (CKD-EPI)AfAm >90 (>60 ml/min/1.73 sqM) Est GFR (CKD-EPI)NonAf >90 (>60 ml/min/1.73 sqM) Glucose 129 H (74-99) mg/dL Plasma Lactic Acid Jose Ramon (0.7-2.0) mmol/L Calcium 9.1 (8.4-10.2) mg/dL Total Bilirubin 0.6 (0.2-1.3) mg/dL AST 34 (17-59) U/L ALT 34 (4-49) U/L Alkaline Phosphatase 84 (38-126) U/L Total Protein 6.5 (6.3-8.2) g/dL Albumin 3.7 (3.5-5.0) g/dL Amylase 229 H (30-110) U/L Lipase 747 H (23-300) U/L Urine Color Yellow Urine Appearance Clear (Clear) Urine pH 6.0 (5.0-8.0) Ur Specific [place] 1.010 (1.001-1.035) Urine Protein Negative (Negative) Urine Glucose (UA) Negative (Negative) Urine Ketones Negative (Negative) Urine Blood Small H (Negative) Urine Nitrite Negative (Negative) Urine Bilirubin Negative (Negative) Urine Urobilinogen <2.0 (<2.0) mg/dL Ur Leukocyte Esterase Negative (Negative) Urine RBC 5 (0-5) /hpf Urine WBC 1 (0-5) /hpf Hyaline Casts 1 (0-2) /lpf Urine Mucus Rare H (None) /hpf 12/18/19 Range/Units 00:03 WBC (3.8-10.6) k/uL RBC (4.30-5.90) m/uL Hgb (13.0-17.5) gm/dL Hct (39.0-53.0) % MCV (80.0-100.0) fL MCH (25.0-35.0) pg MCHC (31.0-37.0) g/dL RDW (11.5-15.5) % Plt Count (150-450) k/uL Neutrophils % % Lymphocytes % % Monocytes % % Eosinophils % % Basophils % % Neutrophils # (1.3-7.7) k/uL Lymphocytes # (1.0-4.8) k/uL Monocytes # (0-1.0) k/uL Eosinophils # (0-0.7) k/uL Basophils # (0-0.2) k/uL Sodium (137-145) mmol/L Potassium (3.5-5.1) mmol/L Chloride (98-107) mmol/L Carbon Dioxide (22-30) mmol/L Anion Gap mmol/L BUN (9-20) mg/dL Creatinine (0.66-1.25) mg/dL Est GFR (CKD-EPI)AfAm (>60 ml/min/1.73 sqM) Est GFR (CKD-EPI)NonAf (>60 ml/min/1.73 sqM) Glucose (74-99) mg/dL Plasma Lactic Acid Jose Ramon 0.9 (0.7-2.0) mmol/L Calcium (8.4-10.2) mg/dL Total Bilirubin (0.2-1.3) mg/dL AST (17-59) U/L ALT (4-49) U/L Alkaline Phosphatase (38-126) U/L Total Protein (6.3-8.2) g/dL Albumin (3.5-5.0) g/dL Amylase (30-110) U/L Lipase (23-300) U/L Urine Color Urine Appearance (Clear) Urine pH (5.0-8.0) Ur Specific [place] (1.001-1.035) Urine Protein (Negative) Urine Glucose (UA) (Negative) Urine Ketones (Negative) Urine Blood (Negative) Urine Nitrite (Negative) Urine Bilirubin (Negative) Urine Urobilinogen (<2.0) mg/dL Ur Leukocyte Esterase (Negative) Urine RBC (0-5) /hpf Urine WBC (0-5) /hpf Hyaline Casts (0-2) /lpf Urine Mucus (None) /hpf - Radiology Data Radiology results: report reviewed, image reviewed CT abdomen and pelvis with contrast was obtained. Report was reviewed in its entirety. Impression by Dr. Mae shows small checking [place] of the right ureterovesicular junction. There is right-sided hydronephrosis and hydroureter. Obstruction appears new compared to old exam. There is clearing of the atelectasis of the lung bases compared to old exam. There is clearing of free fluid in the abdomen and inflammatory changes of the sigmoid colon. Disposition Clinical Impression: Kidney stone on right side Disposition: HOME SELF-CARE Condition: Good Instructions (If sedation given, give patient instructions): Kidney Stones (ED) Additional Instructions: Increase fluids. Rest. Take Motrin as well as her Gardiner for pain relief if necessary. Complete Flomax prescription in full. Follow-up with urology if you're symptoms aren't improved over the next 1-2 days. Follow-up with your primary care physician for recheck in 1-2 days. Return to the emergency department immediately for any new, worsening, or concerning symptoms. Prescriptions: Tamsulosin HCl [Flomax] 0.4 mg PO DAILY #7 cap Ibuprofen [Motrin] 600 mg PO Q8HR PRN #30 tab PRN Reason: Pain Is patient prescribed a controlled substance at d/c from ED?: No Referrals: Tiff Traylor MD [Primary Care Provider] - 1-2 days Terrence Bueno MD [STAFF PHYSICIAN] - 1-2 days Time of Disposition: 01:36
[2019-12-18 00:23] LABS: Basophils # (A) 0.1 k/uL (0-0.2); Basophils % (A) 1 %; Eosinophils # (A) 0.1 k/uL (0-0.7); Eosinophils % (A) 1 %; HGB 13.8 gm/dL (13.0-17.5); Lymphocytes % (A) 18 %; MCH 28.8 pg (25.0-35.0); MCHC 32.8 g/dL (31.0-37.0); MCV 87.9 fL (80.0-100.0); Mean Platelet Volume 7.9; Monocytes # (A) 0.7 k/uL (0-1.0); Monocytes % (A) 6 %; Neutrophils # (A) 8.2 k/uL (1.3-7.7); Neutrophils % (A) 74 %; Platelet Count 270 k/uL (150-450); RBC 4.78 m/uL (4.30-5.90); RDW 13.4 % (11.5-15.5); WBC 11.2 k/uL (3.8-10.6)
[2019-12-18 00:26] LABS: Appearance,Urine Clear (Clear); Color,Urine Yellow
[2019-12-18 00:27] LABS: Bilirubin,Urine Negative (Negative); Blood,Urine Small (Negative); Glucose,Urine (UA) Negative (Negative); Ketones,Urine Negative (Negative); Nitrite,Urine Negative (Negative); Protein,Urine Negative (Negative); Urobilinogen,Urine <2.0 mg/dL (<2.0)
[2019-12-18 00:28] LABS: Leukocyte Esterase,Urine Negative (Negative)
[2019-12-18 00:29] LABS: Hyaline Casts,Urine 1 /lpf (0-2); Mucus,Urine Rare /hpf; RBC,Urine 5 /hpf (0-5); WBC,Urine 1 /hpf (0-5)
[2019-12-18 00:36] LABS: ALT 34 U/L (4-49); AST 34 U/L (17-59); African American GFR (CKD) >90 (>60 ml/min/1.73 sqM); Albumin 3.7 g/dL (3.5-5.0); Alkaline Phosphatase 84 U/L (38-126); Amylase 229 U/L (30-110); Anion Gap 9 mmol/L; Blood Urea Nitrogen 11 mg/dL (9-20); Calcium 9.1 mg/dL (8.4-10.2); Carbon Dioxide 21 mmol/L (22-30); Chloride 103 mmol/L (98-107); Glucose 129 mg/dL (74-99); Lipase 747 U/L (23-300); Non-African American GFR(CKD) >90 (>60 ml/min/1.73 sqM); Potassium 3.8 mmol/L (3.5-5.1); Sodium 133 mmol/L (137-145); Total Bilirubin 0.6 mg/dL (0.2-1.3); Total Protein 6.5 g/dL (6.3-8.2)
--- NOTE | 2019-12-18 00:49 | CT ---
EXAMINATION TYPE: CT abdomen pelvis w con DATE OF EXAM: 12/18/2019 COMPARISON: 11/30/2019 HISTORY: Rt Flank Pain CT DLP: 963.60 mGycm Automated exposure control for dose reduction was used. CONTRAST: Performed with IV Contrast, patient injected with 100 mL of Isovue 300. Images obtained from the diaphragm to the floor the pelvis with IV contrast. FINDINGS: The lung bases are clear of consolidation. There is no pleural effusion. Heart size is normal. There is no pericardial effusion. Liver spleen pancreas gallbladder stomach appear normal. Bile ducts are not dilated. There is no adre nal mass. There is right-sided perinephric edema. There is enlarged right kidney with hydronephrosis and hydrou reter. There is 1 mm calculus at the right ureteral vesicle junction. There is no inguinal hernia. Le ft kidney shows normal excretion. There is delayed right side pyelogram on the delayed images. There is no retroperitoneal adenopathy. There is left side colostomy. Appendix is to be medial on the coronal images with no sign of inflammation. Lumbar vertebra have normal alignment. There is narrowing at L5-S1 disc. There is no compression frac ture. The posterior elements are intact. Bony pelvis is intact. Hip joints are intact. IMPRESSION: Small obstructing calculus at the right ureterovesical junction with right-sided hydronephrosis and h ydroureter. Obstruction appears new compared to old exam. There is clearing of the atelectasis at the lung bases compared to old exam. There is clearing of the free fluid in the abdomen and the inflammatory changes of the sigmoid colon.
[2019-12-18] MEDS ORDERED: HYDROmorphone 0.5 MG/0.5 ML SYRINGE IVP STA (01:05)
[2019-12-18] MEDS ORDERED: ONDANSETRON 4 MG/2 ML VIAL IVP STA (01:05)
[2019-12-18] MEDS ORDERED: KETOROLAC 15 MG/ML 1 ML VIAL IVP STA (01:05)
[2019-12-18] MEDS ORDERED: TAMSULOSIN 0.4 MG CAP.ER.24H PO STA (01:46)
[2019-12-18] MEDS ORDERED: IBUPROFEN 600 MG STARTER PACK 4 TAB BTL PO STA (01:46)
[2019-12-18 02:10] VITALS: BP 135/85; PULSE 85; RESP 18
== END 2019-12-18 02:11 | disposition home or self-care (01) ==
LOC: EC 23:35
DX: N13.2 Hydronephrosis with renal and ureteral calculous obstruction (principal); F41.9 Anxiety disorder, unspecified; F17.200 Nicotine dependence, unspecified, uncomplicated; Z79.899 Other long term (current) drug therapy; Z93.3 Colostomy status
CPT/HCPCS: 99284; 96374; 96375 ×2; 96361; 36415; 80053; 82150; 83605; 83690; 85025; 81001; 74177; J2405; J1885; J1170; Q9967

== ENCOUNTER → 2020-03-22 | Outpatient (CLI) | payer BC | END | disposition home or self-care (01) | LOC: LABWHC1 15:38 | PROVIDERS: ATTEND Internal Medicine | DX: Z20.828 Contact with and (suspected) exposure to other viral communicable diseases (principal) | CPT/HCPCS: U0003; C9803 ==